=== PATIENT | male | born 1945 | race Caucasian/White ===

== ENCOUNTER → 2016-05-08 08:02 | Outpatient (CLI) | payer MEDICARE, OTHER ==
[2015-07-06 14:02] VITALS: BMI 23.7
[~2016-05-08 08:02] MED LIST: EXFORGE 5-160 M1 TAB PO; HYDROCODONE-APA1 TAB PO; IMITREX100 MG PO; INFANT GAS40 MG/0.6 PO; KLONOPIN1 MG PO; LEVAQUIN500 MG PO; MIRALAX17 GM PO; MIRAPEX0.5 MG PO; NEURONTIN600 MG PO; PRILOSEC20 MG PO; RESTORIL15 MG PO; SUDOGEST30 MG PO; ZANAFLEX6 MG PO; ZANTAC150 MG PO; ZOFRAN8 MG PO; [UNRECOGNIZED DRUG - OTHER] PO
== END | disposition home or self-care (01) ==
LOC: D.MRI 08:00 → D.ECHO 09:30
DX: I63.139 Cerebral infarction due to embolism of unspecified carotid artery (principal); E78.5 Hyperlipidemia, unspecified; I10 Essential (primary) hypertension

== ENCOUNTER → 2016-05-14 09:48 | Outpatient (CLI) | payer MEDICARE, OTHER ==
[2015-07-06 14:02] VITALS: BMI 23.7
--- NOTE | 2016-05-17 08:24 | EEG ---
PATIENT:TODD HERNANDES DATE OF SERVICE: 05/14/16 MEDICAL RECORD: [id number] DATE OF : 47 LOCATION: [facility] ADMISSION DATE: 05/14/16 REFERRING PHYSICIAN: INTERPRETING PHYSICIAN: TOBI COLIN MD DATE OF SERVICE: 05/14/2016 REFERRED BY: Myself as an outpatient. ELECTROENCEPHALOGRAM NUMBER: [id number]. DATE OF EXAMINATION: 05/14/2016 at 10:20 a.m. TECHNICAL DATA: This electroencephalographic recording consists of approximately 20 minutes of data collection utilizing the international 10/20 system of electrode placement and both referential and non-referential montages. Sixteen channels of electrocerebral recording are accompanied by a 17th channel dedicated to the electrocardiographic rhythm and to 2 channels of electromyographic recording. The recording is performed entirely in the waking state utilizing activation by photic stimulation. ELECTROENCEPHALOGRAPHIC DATA: The entirety of the recorded electrocerebral activity is performed in the waking state. Electromyographic artifact is prominent and rapid eye movements are seen. The posterior dominant background consists of a well-developed, symmetric, rhythmic, waxing and waning alpha activity of 7-8 Hz, which is suppressed by eye opening. No abnormal or focal slowing is identified. No epileptiform discharges are seen. Photic stimulation induces no abnormal change in the recorded electrocerebral activity. INTERPRETATION: 1. Normal (awake). This is a normal electroencephalographic recording. TRANSINT:[id number] Voice Confirmation ID: [id number] DOCUMENT ID: [id number] TOBI COLIN MD at 0824 CC: [id number] DICTATION DATE: 05/16/16 0738 OYSTER FISHERMAN: 05/16/16 0825 DEP CLI 05/14/16 [facility] [address] [place] [address]
--- NOTE | 2016-05-29 13:15 | EC ---
PATIENT:TODD HERNANDES DATE OF SERVICE: 05/14/16 SEX: M MEDICAL RECORD: [id number] DATE OF : 47 LOCATION:[facility] AGE OF PATIENT: 71 ADMISSION DATE: 05/14/16 REFERRING PHYSICIAN: INTERPRETING PHYSICIAN: JAG WILCOX M.D. ECHOCARDIOGRAM REPORT ECHO CHARGES 4 ECHO COMPLETE CLINICAL DIAGNOSIS: CERBREAL INFARCT/HYPOLIPDEMIA ASSESS FOR CLOTS HX OF HTN ECHOCARDIOGRAPHIC MEASUREMENTS (adult normal given) AC root (d.<3.7cm) 4.1 LV Septum d (<1.2 cm> 1.7 Valve Excursion 2.0 LV Septum (systole) 1.8 Left Atria (s.<4.0cm> 3.7 LVPW d(<1.2cm) 1.6 RV (d.<2.3cm) 4.0 LVPW (sytole) 1.7 LV diastole(<5.6CM) 4.5 MV E-F(>70mm/sec) LV systole 3.0 LVOT Diameter 2.2 MV exc.(>10mm) 1.7 Est.ejection fraction (50-75%) Pericardial Effusion N DOPPLER: LVIT A 117 E 105 LA RVSP 55 LVOT 147 AOP1/2T Asc. Ao 158 RVOT 77 RA PA 135 AV Gradient Peak 10.0 AV Mean 5.0 AV Area 3.7 MV Gradient Peak 6.5 MV Mean 2.83 MV Area COMMENTS: Wet Wash Assembler: Brian ROBERTS Size Mixer:2 Dr. Wilcox TAPE# PACS DATE OF SERVICE: 05/14/2016 Echocardiogram Report REFERRING PHYSICIAN: Dr. Kong. INDICATION: CVA. DESCRIPTION: Left ventricle demonstrates left ventricular hypertrophy. No wall motions are seen. Estimated ejection fraction is 55%. There is no evidence of ECHOCARDIOGRAM REPORT [id number] TODD HERNANDES any mass or thrombus in left ventricle apex. Mitral valve is structurally normal. There is mild regurgitation noted. Left atrium is normal in size. The aortic valve is trileaflet. There is no stenosis or regurgitation seen. Right ventricle appears mildly dilated. Tricuspid valve structures are normal. There is mild regurgitation seen. Right ventricular systolic pressure is elevated at 55 mmHg. There is no pericardial effusion noted. IMPRESSION: 1. Left ventricular hypertrophy with preserved ejection fraction of 55%. 2. Mild mitral regurgitation. 3. Mild tricuspid regurgitation with elevated pulmonary pressures. 4. No evidence of any mass or thrombus in the left ventricle apex. 5. No evidence of atrial septal defect, ventricular septal defect or patent foramen ovale. TRANSINT:[id number] Voice Confirmation ID: [id number] DOCUMENT ID: [id number] JAG WILCOX M.D. at 1315 CC: [id number] DICTATION DATE: 05/14/16 142 [place] RESOURCE MANAGER: 05/14/16 1435 [facility] CLI 05/14/16 [address] [id number] [place] [address]
== END | disposition home or self-care (01) ==
LOC: D.CN 09:48
DX: I63.139 Cerebral infarction due to embolism of unspecified carotid artery (principal); E78.4 Other hyperlipidemia; I10 Essential (primary) hypertension

== ENCOUNTER 2017-05-15 06:15 | Inpatient (IN) | payer MEDICARE, OTHER ==
[~2017-05-15] VITALS: Ht 180.3 cm; Wt 95.1 kg
--- NOTE | ~2017-05-15 | EC ---
PATIENT:TODD HERNANDES DATE OF SERVICE: 05/15/17 SEX: M MEDICAL RECORD: [id number] DATE OF : 47 LOCATION:D.MS [facility] AGE OF PATIENT: 72 ADMISSION DATE: 05/15/17 REFERRING PHYSICIAN: INTERPRETING PHYSICIAN: LEVI HOYT MD ECHOCARDIOGRAM REPORT ECHO CHARGES 4 ECHO COMPLETE CLINICAL DIAGNOSIS: TIA VS CVA HX OF HYPOTENSION/ACUTE RENAL FAILURE ECHOCARDIOGRAPHIC MEASUREMENTS (adult normal given) AC root (d.<3.7cm) 3.8 cm LV Septum d (<1.2 cm> 1.8 cm Valve Excursion 1.7 cm LV Septum (systole) 2.1 cm Left Atria (s.<4.0cm> 3.5 cm LVPW d(<1.2cm) 1.5 cm RV (d.<2.3cm) 3.3 cm LVPW (sytole) 1.7 cm LV diastole(<5.6CM) 4.7 cm MV E-F(>70mm/sec) cm LV systole 3.3 cm LVOT Diameter 1.7 cm MV exc.(>10mm) 1.7 cm Est.ejection fraction (50-75%) % Pericardial Effusion N DOPPLER: LVIT cm/sec A 105 cm/sec E 99.0 cm/sec LA cm/sec RVSP 45 mmHg LVOT 128 cm/sec AOP1/2T m/s Asc. Ao 185 cm/sec RVOT 91 cm/sec RA cm/sec PA 134 cm/sec AV Gradient Peak 13.74mmHg AV Mean 5.98 mmHg AV Area 2.1 cm MV Gradient Peak 7.17 mmHg MV Mean 2.23 mmHg MV Area cm COMMENTS: Cellulose Insulation Helper: Brian ROBERTS Assembler Type Bar And Segment: 2 Dr. Wilcox TAPE# PACS DATE OF SERVICE: 05/15/2017 DATE OF SERVICE: 05/15/2017 FINDINGS: 1. Left ventricle chamber size is within normal limits. Left ventricular systolic function is normal. Overall ejection fraction estimated at 60%. 2. Left atrium, right atrium, and right ventricular chamber sizes are within normal limits. ECHOCARDIOGRAM REPORT [id number] TODD HERNANDES 3. Valvular structures have normal structure and motion. 4. Doppler interrogation reveals only mild tricuspid regurgitation. No other valvular insufficiency or stenosis. 5. No evidence of pericardial effusion or left ventricular thrombus. 6. No cardiac source of neurologic emboli. TRANSINT:[id number] Voice Confirmation ID: [id number] DOCUMENT ID: [id number] LEVI HOYT MD at 1018 CC: [id number] DICTATION DATE: 05/15/171919 LOCAL AREA NETWORK ADMINISTRATOR: 05/15/17 2235 ADM IN [facility] [address] [place] [id number]
[2017-05-15 06:38] LABS: BASOPHILS 0.4 % (0-2); EOSINOPHILS 2.9 % (0-7); HEMATOCRIT 32.4 % (42.0-54.0); HEMOGLOBIN 10.1 g/dL (13.5-17.5); LYMPHOCYTES 32.2 % (15-50); MCH 31.1 pg (26.0-34.0); MCHC 31.2 g/dL (31.0-37.0); MCV 99.7 fL (80.0-100.0); MEAN PLATELET VOLUME 8.9 fL (7.4-10.4); MONOCYTES 13.9 % (2-11); NEUTROPHILS 50.6 % (40-80); PLATELET COUNT 150 10x3/uL (130-400); RBC 3.25 10x6/uL (4.20-6.10); RDW 13.1 % (11.5-14.5); WBC 5.3 10x3/uL (4.8-10.8)
[2017-05-15 07:04] LABS: ALBUMIN 3.1 g/dL (3.4-5.0); ANION GAP 11.9 mmol/L (8-16); BILIRUBIN - TOTAL 0.61 mg/dL (0.2-1.3); CALCIUM 8.3 mg/dL (8.5-10.1); CARBON DIOXIDE 27.6 mmol/L (21.0-32.0); CREATININE - SERUM 1.4 mg/dL (0.6-1.3); POTASSIUM - SERUM 4.5 mmol/L (3.5-5.1); PROTEIN - SERUM 6.4 g/dL (6.4-8.2)
[2017-05-15 07:40] LABS: CREATINE KINASE 3007 UL (21-232); MAGNESIUM - SERUM 2.3 mg/dL (1.8-2.4); PRO BNP 771 pg/mL (0-125); TROPONIN-I 0.021 ng/mL (0.000-0.060)
[2017-05-15 07:41] LABS: CKMB 42.5 U/L (0.0-3.6)
[2017-05-15] MEDS ORDERED: DIOVAN160 MG PO (10:31)
[2017-05-15] MEDS ORDERED: PRAVACHOL40 MG PO (10:31)
[2017-05-15] MEDS ORDERED: AVODART0.5 MG PO (10:32)
[2017-05-15] MEDS ORDERED: NORVASC2.5 MG PO (10:33)
[2017-05-15] MEDS ORDERED: BAYER ASPIRIN325 MG PO (10:33)
[2017-05-15] MEDS ORDERED: MORPHINE SULFAT15 M4 PO (10:34)
[2017-05-15] MEDS ORDERED: HYDROCODONE-APA1 TAB PO (10:37)
[2017-05-15 14:09] LABS: CKMB 25.5 U/L (0.0-3.6); CREATINE KINASE 2111 UL (21-232); TROPONIN-I 0.018 ng/mL (0.000-0.060)
[2017-05-15 14:16] VITALS: BP 142/86; Ht 180.3 cm; Wt 95.1 kg
[2017-05-15 16:23] VITALS: BP 131/76
[2017-05-15 18:05] LABS: CKMB 17.2 U/L (0.0-3.6)
[2017-05-15 18:19] LABS: CREATINE KINASE 2005 UL (21-232); TROPONIN-I < 0.017 ng/mL (0.000-0.060)
[2017-05-15 20:00] VITALS: BP 150/84
[2017-05-15 23:58] VITALS: BP 162/90
[2017-05-16 00:22] LABS: CKMB 10.4 U/L (0.0-3.6); TROPONIN-I 0.023 ng/mL (0.000-0.060)
[2017-05-16 00:24] LABS: CREATINE KINASE 1707 UL (21-232)
[2017-05-16 04:00] VITALS: BP 177/89
[2017-05-16 05:38] LABS: BASOPHILS 0.4 % (0-2); EOSINOPHILS 2.6 % (0-7); HEMATOCRIT 33.6 % (42.0-54.0); HEMOGLOBIN 10.9 g/dL (13.5-17.5); LYMPHOCYTES 29.4 % (15-50); MCH 31.3 pg (26.0-34.0); MCHC 32.4 g/dL (31.0-37.0); MEAN PLATELET VOLUME 9.5 fL (7.4-10.4); MONOCYTES 12.1 % (2-11); NEUTROPHILS 55.5 % (40-80); RBC 3.48 10x6/uL (4.20-6.10); WBC 4.6 10x3/uL (4.8-10.8)
[2017-05-16 05:41] LABS: MCV 96.6 fL (80.0-100.0); PLATELET COUNT 186 10x3/uL (130-400)
[2017-05-16 05:50] LABS: ALBUMIN 3.2 g/dL (3.4-5.0); ALKALINE PHOSPHATASE 61 U/L (46-116); ALT (SGPT) 22 U/L (10-68); BILIRUBIN - TOTAL 0.96 mg/dL (0.2-1.3); CALC OSMOLALITY 279 mosm/kg (275-300); CALCIUM 8.9 mg/dL (8.5-10.1); CARBON DIOXIDE 26.5 mmol/L (21.0-32.0); CHLORIDE - SERUM 105 mmol/L (98-107); CHOL - HDL RATIO 2.3 ratio (2.3-4.9); CHOLESTEROL, TOTAL 157 mg/dL (0-200); GLUCOSE 99 mg/dL (74-106); HDL CHOLESTEROL 67 mg/dL (32-96); LDL CHOLESTEROL 74 mg/dL (0-100); LDL-HDL RATIO 1.1 ratio (1.5-3.5); PROTEIN - SERUM 6.7 g/dL (6.4-8.2); SODIUM 140 mmol/L (136-145); TRIGLYCERIDE 80 mg/dL (30-200); UREA NITROGEN 16 mg/dL (7-18)
[2017-05-16 05:51] LABS: POTASSIUM - SERUM 3.8 mmol/L (3.5-5.1); eGFR NON AFRICAN AMERICAN 78 mL/min (90-120)
[2017-05-16 07:15] LABS: ERYTHROCYTE SEDIMENTATION RATE 30 mm/hr (0-20)
[2017-05-16 08:13] VITALS: BP 154/99
[2017-05-16 12:13] VITALS: BP 143/85
[2017-05-16 17:20] VITALS: BP 154/94
[2017-05-16 20:10] VITALS: BP 149/78
[2017-05-16 23:43] VITALS: BP 157/95
[2017-05-17 02:26] LABS: APPEARANCE CLEAR (CLEAR); BILIRUBIN NEGATIVE (NEGATIVE); COLOR YELLOW (YELLOW); GLUCOSE NEGATIVE (NEGATIVE); KETONE NEGATIVE (NEGATIVE); NITRITE NEGATIVE (NEGATIVE); PROTEIN NEGATIVE (NEGATIVE); SPECIFIC GRAVITY 1.005 (1.005-1.020); UROBILINOGEN NORMAL (NORMAL)
[2017-05-17 04:17] VITALS: BP 169/102
[2017-05-17 06:11] LABS: BASOPHILS 0.2 % (0-2); EOSINOPHILS 3.2 % (0-7); HEMATOCRIT 32.4 % (42.0-54.0); HEMOGLOBIN 10.7 g/dL (13.5-17.5); LYMPHOCYTES 32.8 % (15-50); MCH 31.3 pg (26.0-34.0); MCV 94.7 fL (80.0-100.0); MEAN PLATELET VOLUME 9.4 fL (7.4-10.4); MONOCYTES 13.1 % (2-11); NEUTROPHILS 50.7 % (40-80); PLATELET COUNT 182 10x3/uL (130-400); RBC 3.42 10x6/uL (4.20-6.10); RDW 13.1 % (11.5-14.5); WBC 4.1 10x3/uL (4.8-10.8)
[2017-05-17 06:31] LABS: ALBUMIN 3.1 g/dL (3.4-5.0); ALKALINE PHOSPHATASE 59 U/L (46-116); ALT (SGPT) 21 U/L (10-68); BILIRUBIN - TOTAL 0.94 mg/dL (0.2-1.3); CALC OSMOLALITY 283 mosm/kg (275-300); CALCIUM 8.7 mg/dL (8.5-10.1); CARBON DIOXIDE 27.2 mmol/L (21.0-32.0); CHLORIDE - SERUM 106 mmol/L (98-107); GLUCOSE 102 mg/dL (74-106); POTASSIUM - SERUM 3.6 mmol/L (3.5-5.1); PROTEIN - SERUM 6.5 g/dL (6.4-8.2); SODIUM 143 mmol/L (136-145); UREA NITROGEN 11 mg/dL (7-18); eGFR NON AFRICAN AMERICAN 78 mL/min (90-120)
[2017-05-17 09:41] VITALS: BP 141/94
[2017-05-17 12:14] VITALS: BP 142/96
[2017-05-17] MEDS ORDERED: MUCINEX600 MG PO (12:57)
[2017-05-17] MEDS ORDERED: TESSALON PERLE100 MG PO (12:57)
[2017-05-17] MEDS ORDERED: NICODERM C1 PATCH .1 TRANSDERM (12:58)
[2017-05-19 10:12] LABS: ANA REFLEX - DIRECT Negative (Negative)
== END 2017-05-17 17:00 | disposition home or self-care (01) | DRG 64 ==
LOC: D.ER 06:15 → D.MS 09:26
PROVIDERS: Emergency Medicine; Family Medicine
DX: I63.8 Other cerebral infarction (principal); G93.41 Metabolic encephalopathy; N17.9 Acute kidney failure, unspecified; F17.203 Nicotine dependence unspecified, with withdrawal; R44.1 Visual hallucinations; I11.0 Hypertensive heart disease with heart failure; I50.9 Heart failure, unspecified; J44.9 Chronic obstructive pulmonary disease, unspecified; F41.9 Anxiety disorder, unspecified; G62.9 Polyneuropathy, unspecified; I95.9 Hypotension, unspecified

== ENCOUNTER 2017-06-07 14:38 | Inpatient (IN) | payer MEDICARE, OTHER ==
[~2017-06-07] VITALS: Ht 180.3 cm; Wt 72.6 kg
[~2017-06-07 14:38] MED LIST changes: +AVODART0.5 MG PO; +BAYER ASPIRIN325 MG PO; +DIOVAN160 MG PO; +MORPHINE SULFAT15 M4 PO; +MUCINEX600 MG PO; +NICODERM C1 PATCH .1 TRANSDERM; +NORVASC2.5 MG PO; +PRAVACHOL40 MG PO; +TESSALON PERLE100 MG PO
[2017-06-07 16:16] LABS: BASOPHILS 0.3 % (0-2); EOSINOPHILS 4.6 % (0-7); HEMATOCRIT 35.5 % (42.0-54.0); HEMOGLOBIN 11.2 g/dL (13.5-17.5); IMMATURE GRANULOCYTES 0.1 % (0-5); LYMPHOCYTES 17.7 % (15-50); MCH 31.4 pg (26.0-34.0); MCHC 31.5 g/dL (31.0-37.0); MCV 99.4 fL (80.0-100.0); MEAN PLATELET VOLUME 9.6 fL (7.4-10.4); MONOCYTES 10.4 % (2-11); NEUTROPHILS 66.9 % (40-80); RBC 3.57 10x6/uL (4.20-6.10); RDW 13.3 % (11.5-14.5); WBC 7.6 10x3/uL (4.8-10.8)
[2017-06-07 16:26] LABS: APPEARANCE CLEAR (CLEAR); COLOR YELLOW (YELLOW)
[2017-06-07 16:27] LABS: BILIRUBIN NEGATIVE (NEGATIVE); GLUCOSE NEGATIVE (NEGATIVE); KETONE NEGATIVE (NEGATIVE); NITRITE NEGATIVE (NEGATIVE); PROTEIN NEGATIVE (NEGATIVE); SPECIFIC GRAVITY 1.015 (1.005-1.020); UROBILINOGEN NORMAL (NORMAL)
[2017-06-07 16:27] LABS: PLATELET COUNT 141 10x3/uL (130-400)
[2017-06-07 16:39] LABS: ALBUMIN 3.5 g/dL (3.4-5.0); ANION GAP 12.2 mmol/L (8-16); BILIRUBIN - TOTAL 0.61 mg/dL (0.2-1.3); CALCIUM 8.7 mg/dL (8.5-10.1); CARBON DIOXIDE 28.7 mmol/L (21.0-32.0); CREATININE - SERUM 1.3 mg/dL (0.6-1.3); POTASSIUM - SERUM 4.9 mmol/L (3.5-5.1); PROTEIN - SERUM 6.9 g/dL (6.4-8.2)
[2017-06-07 23:00] VITALS: BP 116/74
[2017-06-07 23:15] VITALS: BP 112/71; BP 128/70; BMI 22.3
[2017-06-07 23:30] VITALS: BP 120/69
[2017-06-07 23:45] VITALS: BP 122/78
[2017-06-08] VITALS (12 sets, daily range): BP systolic 101–143; BP diastolic 67–98
[2017-06-08] MEDS ORDERED: ZANAFLEX6 MG PO (08:43)
[2017-06-08] MEDS ORDERED: PRAVACHOL40 MG PO (08:44)
[2017-06-09 01:42] VITALS: BP 127/75
[2017-06-09 05:37] LABS: BASOPHILS 0.2 % (0-2); EOSINOPHILS 9.2 % (0-7); HEMOGLOBIN 10.1 g/dL (13.5-17.5); IMMATURE GRANULOCYTES 0.2 % (0-5); LYMPHOCYTES 36.7 % (15-50); MCH 31.8 pg (26.0-34.0); MCHC 32.6 g/dL (31.0-37.0); MCV 97.5 fL (80.0-100.0); MEAN PLATELET VOLUME 9.6 fL (7.4-10.4); NEUTROPHILS 40.7 % (40-80); PLATELET COUNT 131 10x3/uL (130-400); RBC 3.18 10x6/uL (4.20-6.10); RDW 12.8 % (11.5-14.5)
[2017-06-09 05:38] LABS: WBC 4.1 10x3/uL (4.8-10.8)
[2017-06-09 05:55] VITALS: BP 103/64
[2017-06-09 05:59] LABS: CALCIUM 8.4 mg/dL (8.5-10.1); CARBON DIOXIDE 30.2 mmol/L (21.0-32.0); CHLORIDE - SERUM 105 mmol/L (98-107); GLUCOSE 101 mg/dL (74-106); SODIUM 140 mmol/L (136-145)
[2017-06-09 06:00] LABS: CALC OSMOLALITY 276 mosm/kg (275-300); CREATININE - SERUM 0.9 mg/dL (0.6-1.3); POTASSIUM - SERUM 3.9 mmol/L (3.5-5.1); UREA NITROGEN 6 mg/dL (7-18); eGFR NON AFRICAN AMERICAN 88 mL/min (90-120)
[2017-06-09 09:26] VITALS: BP 114/74
[2017-06-09 12:43] VITALS: BP 114/70
[2017-06-09 15:16] VITALS: Ht 180.3 cm; Wt 72.6 kg
[2017-06-09 17:33] VITALS: BP 124/75
[2017-06-09 21:52] VITALS: BP 122/71
[2017-06-10 00:48] VITALS: BP 124/74
[2017-06-10 05:33] VITALS: BP 124/77
[2017-06-10 06:34] LABS: ANION GAP 7.4 mmol/L (8-16); CALCIUM 8.5 mg/dL (8.5-10.1); CARBON DIOXIDE 33.3 mmol/L (21.0-32.0); CREATININE - SERUM 1.1 mg/dL (0.6-1.3); POTASSIUM - SERUM 3.7 mmol/L (3.5-5.1)
[2017-06-10 06:43] LABS: HEMOGLOBIN 9.9 g/dL (13.5-17.5); LYMPHOCYTES 32.5 % (15-50); MCH 31.3 pg (26.0-34.0); MEAN PLATELET VOLUME 9.3 fL (7.4-10.4); PLATELET COUNT 120 10x3/uL (130-400); RBC 3.16 10x6/uL (4.20-6.10); RDW 12.3 % (11.5-14.5); WBC 4.3 10x3/uL (4.8-10.8)
[2017-06-10 06:44] LABS: MCV 94.9 fL (80.0-100.0)
[2017-06-10 08:30] VITALS: BP 126/76
[2017-06-10 12:08] VITALS: BP 119/69
[2017-06-10] MEDS ORDERED: NICODERM C1 PATCH .1 TRANSDERM (12:57)
[2017-06-10] MEDS ORDERED: TEGRETOL200 MG PO (12:58)
== END 2017-06-10 15:03 | disposition home or self-care (01) | DRG 64 ==
LOC: D.ER 14:38 → D.EDHOLD 19:30 → D.MS 19:30 → D.ICU 19:30 → D.MS 06-08 18:09
PROVIDERS: Emergency Medicine; Internal Medicine Nephrology
DX: I63.9 Cerebral infarction, unspecified (principal); G93.41 Metabolic encephalopathy; J96.21 Acute and chronic respiratory failure with hypoxia; N17.9 Acute kidney failure, unspecified; F17.203 Nicotine dependence unspecified, with withdrawal; R56.9 Unspecified convulsions; D64.9 Anemia, unspecified; J43.9 Emphysema, unspecified; I10 Essential (primary) hypertension; R55 Syncope and collapse

== ENCOUNTER → 2018-04-23 14:39 | Outpatient (CLI) | payer MEDICARE, BC ==
[2017-06-09 15:16] VITALS: BMI 22.3
[~2018-04-23 14:39] MED LIST changes: +TEGRETOL200 MG PO
== END | disposition home or self-care (01) ==
LOC: D.MRI 14:39
DX: M54.2 Cervicalgia (principal)

== ENCOUNTER → 2018-05-07 12:19 | Outpatient (CLI) | payer MEDICARE, BC ==
[2017-06-09 15:16] VITALS: BMI 22.3
[~2018-05-07 12:19] MED LIST changes: +BENICAR40 MG; +FLOMAX0.4 MG; +HYDROCODON-ACE1 EA10; +PRAVACHOL20 MG; +ZANAFLEX6 MG
== END | disposition home or self-care (01) ==
LOC: D.CT 12:19
DX: M54.2 Cervicalgia (principal)

== ENCOUNTER 2018-05-25 17:12 | Inpatient (IN) | payer MEDICARE, BC ==
[~2018-05-25] VITALS: Ht 180.3 cm; Wt 72.6 kg
[~2018-05-25 17:12] MED LIST changes: -BENICAR40 MG; -FLOMAX0.4 MG; -HYDROCODON-ACE1 EA10; -PRAVACHOL20 MG; -ZANAFLEX6 MG
[2018-05-25 17:21] VITALS: BP 81/46
[2018-05-25 17:30] VITALS: BP 84/50
[2018-05-25 17:46] LABS: HEMATOCRIT 31.5 % (42.0-54.0); HEMOGLOBIN 10.3 g/dL (13.5-17.5); IMMATURE GRANULOCYTES 0.2 % (0-5); LYMPHOCYTES 34.7 % (15-50); MCH 31.4 pg (26.0-34.0); MCHC 32.7 g/dL (31.0-37.0); MEAN PLATELET VOLUME 8.8 fL (7.4-10.4); MONOCYTES 10.8 % (2-11); NEUTROPHILS 50.3 % (40-80); RBC 3.28 10x6/uL (4.20-6.10); RDW 13.4 % (11.5-14.5)
[2018-05-25] MEDS ORDERED: BENICAR40 MG (17:56)
[2018-05-25] MEDS ORDERED: FLOMAX0.4 MG (17:56)
[2018-05-25] MEDS ORDERED: PRAVACHOL20 MG (17:57)
[2018-05-25] MEDS ORDERED: HYDROCODON-ACE1 EA10 (17:57)
[2018-05-25] MEDS ORDERED: ZANAFLEX6 MG (17:57)
[2018-05-25] MEDS ORDERED: KLONOPIN1 MG PO (17:57)
[2018-05-25 18:00] VITALS: BP 101/66
[2018-05-25 18:01] LABS: ALBUMIN 2.9 g/dL (3.4-5.0); ALKALINE PHOSPHATASE 67 U/L (46-116); ALT (SGPT) 9 U/L (10-68); BILIRUBIN - TOTAL 0.38 mg/dL (0.2-1.3); CALCIUM 7.9 mg/dL (8.5-10.1); CARBON DIOXIDE 24.4 mmol/L (21.0-32.0); CHLORIDE - SERUM 99 mmol/L (98-107); CREATININE - SERUM 1.8 mg/dL (0.6-1.3); POTASSIUM - SERUM 4.8 mmol/L (3.5-5.1); PROTEIN - SERUM 5.8 g/dL (6.4-8.2); SODIUM 133 mmol/L (136-145); UREA NITROGEN 18 mg/dL (7-18); eGFR NON AFRICAN AMERICAN 40 mL/min (90-120)
[2018-05-25 18:12] LABS: CKMB 0.7 U/L (0.0-3.6); CREATINE KINASE 52 UL (21-232); PRO BNP 79 pg/mL (0-125)
[2018-05-25 18:16] LABS: PLATELET COUNT 174 10x3/uL (130-400)
[2018-05-25 18:30] VITALS: BP 105/67
[2018-05-25 18:37] LABS: CALC OSMOLALITY 270 mosm/kg (275-300); GLUCOSE 148 mg/dL (74-106); TROPONIN-I < 0.017 ng/mL (0.000-0.060)
[2018-05-25 19:00] VITALS: BP 107/67
--- NOTE | 2018-05-25 19:13 | NUR ---
HAND-OFF REPORT GIVEN TO EMY JIMENEZ.
[2018-05-25 19:30] VITALS: BP 117/85
--- NOTE | 2018-05-26 02:39 | NUR ---
2044) REC'D. TO RM.2237.EYES CLOSED RESP. DEEP AND EVEN.fLORIDA NECK BRACE ON.SEDATED OPENS EYES WHEN NAME CALLED THEN GOES BACK TO SLEEP. FAMILY MEMBER AT BEDSIDE,WILL CONTINUE TO MONITOR FOR ANY CHGES, AND FOLLOW CURRENT PLAN OF CARE.
[2018-05-26 04:00] VITALS: BP 146/89
[2018-05-26 04:03] VITALS: BMI 22.3
[2018-05-26 05:59] LABS: BASOPHILS 0.3 % (0-2); EOSINOPHILS 1.9 % (0-7); HEMOGLOBIN 10.9 g/dL (13.5-17.5); IMMATURE GRANULOCYTES 0.2 % (0-5); LYMPHOCYTES 22.5 % (15-50); MCH 31.1 pg (26.0-34.0); MONOCYTES 10.5 % (2-11); NEUTROPHILS 64.6 % (40-80); RBC 3.51 10x6/uL (4.20-6.10); RDW 13.3 % (11.5-14.5)
[2018-05-26 06:12] LABS: INR 0.96 (0.85-1.17); PROTIME 12.3 SECONDS (11.6-15.0)
[2018-05-26 06:14] LABS: ANION GAP 12.2 mmol/L (8-16); CALCIUM 8.5 mg/dL (8.5-10.1); CARBON DIOXIDE 25.5 mmol/L (21.0-32.0); POTASSIUM - SERUM 4.7 mmol/L (3.5-5.1)
[2018-05-26 06:16] LABS: CREATININE - SERUM 1.3 mg/dL (0.6-1.3)
[2018-05-26 06:18] LABS: PLATELET COUNT 218 10x3/uL (130-400); WBC 6.4 10x3/uL (4.8-10.8)
--- NOTE | 2018-05-26 07:25 | NUR ---
PT RESTING IN BED, EYES CLOSED. RESPIRATIONS EVEN AND UNLABORED. AROUSES TO VOICE. NO C/O PAIN. NO S/S OF ACUTE DISTRESS NOTED. AT BEDSIDE. PT ADMITTED WITH LUNG MASS. FALL PRECAUTIONS IN PLACE. SCDS PRESENT AND ON. 2L O2, NC. IV TO LEFT AC, SITE PATENT WITHOUT REDNESS OR SWELLING. NS INFUSING @ 125ML/HR. PT DENIES ANYTHING FURTHER AT THIS TIME. CALL LIGHT IN REACH. WILL CONTINUE TO MONITOR.
[2018-05-26 08:30] VITALS: BP 145/88
[2018-05-26 12:30] VITALS: BP 175/108
--- NOTE | 2018-05-26 12:53 | NUR ---
PT BP ELEVATED TO 175/108, RECHECKED BP 167/109. CALLED BETHANY OLIVA APN ORDERED NORVASC 2.5MG ONE TIME, ASPIRIN 325MG ONE TIME AND TO RECHECK BP IN ONE HOUR. IF BP NOT DOWN, THEN GIVE APPRESSOLINE 10MG IV PUSH. PT RESTING IN BED, NO C/O PAIN. NO S/S OF ACUTE DISTRESS NOTED. PT DENIES ANYTHING FURTHER AT THIS TIME. AT BEDSIDE. WILL CONTINUE TO MONITOR.
--- NOTE | 2018-05-26 12:56 | NUR ---
SITTING UP IN BED FOR LUNCH. C COLLAR IN PLACE. AT BEDSIDE. DENIES NEEDS.
--- NOTE | 2018-05-26 13:13 | NUR ---
OT NOTE: PT EXTREMELY LETHARGIC; AROUSED TO NAME BUT UNABLE TO STAY AWAKE; WILL RE ATTEMPT TOMORROW. LIGIA HARDING, OTR/L
--- NOTE | 2018-05-26 14:03 | NUR ---
IR- PT WILL NEED TO BE OFF ASPIRIN FOR AT LEAST THREE DAYS PRIOR TO RLL BIOPSY. CAN BE DONE ON OUTPATIENT BASIS.
[2018-05-26 14:43] VITALS: Ht 180.3 cm; Wt 72.6 kg
--- NOTE | 2018-05-26 18:03 | NUR ---
PT RESTING IN BED, EYES OPEN. GUARD AT BEDSIDE. NO C/O PAIN. EPIDUAL INFUSING. NO S/S OF ACUTE DISTRESS. PT DENIES ANYTHING FURTHER AT THIS TIME. CALL LIGHT IN REACH. WILL CONTINUE TO MONITOR.
[2018-05-26 18:05] VITALS: BP 119/77
--- NOTE | 2018-05-26 18:07 | NUR ---
PT RESTING IN BED EYES OPEN. C/O PAIN 01/28, GAVE 2MG MORPHINE FOR PAIN. AT BEDSIDE. NO S/S OF ACUTE DISTRESS NOTED. PT DENIES ANYTHING FURTHER AT THIS TIME. CALL LIGHT IN REACH. WILL CONTINUE TO MONITOR.
[2018-05-26 20:00] VITALS: BP 135/66
--- NOTE | 2018-05-27 01:10 | NUR ---
pt in bed resprations are even and unlabored call light in reach. no s/s of distress.
[2018-05-27 05:20] VITALS: BP 133/74
[2018-05-27 05:33] LABS: BASOPHILS 0.3 % (0-2); EOSINOPHILS 1.8 % (0-7); HEMATOCRIT 32.5 % (42.0-54.0); HEMOGLOBIN 10.8 g/dL (13.5-17.5); IMMATURE GRANULOCYTES 0.2 % (0-5); LYMPHOCYTES 20.5 % (15-50); MCH 31.3 pg (26.0-34.0); MCHC 33.2 g/dL (31.0-37.0); MCV 94.2 fL (80.0-100.0); MEAN PLATELET VOLUME 8.8 fL (7.4-10.4); MONOCYTES 9.6 % (2-11); NEUTROPHILS 67.6 % (40-80); PLATELET COUNT 210 10x3/uL (130-400); RBC 3.45 10x6/uL (4.20-6.10); RDW 13.5 % (11.5-14.5); WBC 6.6 10x3/uL (4.8-10.8)
[2018-05-27 05:36] LABS: APTT 24.4 SECONDS (22.8-39.4); INR 0.94 (0.85-1.17); PROTIME 12.1 SECONDS (11.6-15.0)
[2018-05-27 05:37] LABS: ALBUMIN 2.9 g/dL (3.4-5.0); ANION GAP 14.1 mmol/L (8-16); BILIRUBIN - TOTAL 0.52 mg/dL (0.2-1.3); CALCIUM 8.4 mg/dL (8.5-10.1); CARBON DIOXIDE 25.6 mmol/L (21.0-32.0); CREATININE - SERUM 1.1 mg/dL (0.6-1.3); POTASSIUM - SERUM 4.7 mmol/L (3.5-5.1); PROTEIN - SERUM 6.4 g/dL (6.4-8.2)
--- NOTE | 2018-05-27 09:00 | NUR ---
PT RESTING IN BED. NO SIGNS OF DISTRESS. IV TO RIGHT FORARM PATENT NO REDNESS OR TENDERNESS. ON TELEMETRY NORMAL SINUS. HAS BRACE ON NECK. DENIES ANY NEED AT THIS TIME. CALL LIGHT IN REACH. BED LOW POSITION. FAMILY AT BEDSIDE.
[2018-05-27 09:07] VITALS: BP 124/50; BP 158/89
[2018-05-27] MEDS ORDERED: MUCINEX DM ER1 EAC1 PO (12:12)
[2018-05-27] MEDS ORDERED: TESSALON PERLE100 MG PO (12:12)
[2018-05-27] MEDS ORDERED: Nicoderm [PBKC] TRANSDERM (12:12)
--- NOTE | 2018-05-27 13:10 | MORECARE ---
CASE MANAGEMENT DISCHARGE SUMMARY PATIENT: TODD HERNANDES [place] UNIT: [id number] ADM DATE: 05/25/18 AGE: 73 : 46 SEX: M ROOM/BED: D.2237 AUTHOR: PARISH SHELLEY PHYSICIAN: REFERRING PHYSICIAN: JENN MON MD DATE OF SERVICE: 05/27/18 Discharge Plan Patient Name: TODD HERNANDES [facility] [facility] 1945 Planned Disposition: Anticipated Discharge Date: Discharge Date: Expected LOS: Initial Reviewer: [email or web address] Initial Review Date: 05/25/2018 Generated: 05/27/18 2:10 pm DCPIA - Discharge Planning Initial Assessment Updated by [email or web address]: Juliana Lara on 05/27/18 1:10 pm * Is the patient Alert and Oriented? Yes * How many steps to enter\exit or inside your home? * PCP TITO * Pharmacy [facility] * Preadmission Environment Home with Family * ADLs Independent * Equipment Cane Walker * Other Equipment C-COLLAR * List name and contact numbers for known caregivers / representatives who currently or will assist patient after discharge: ANETA HERNANDES () [phone] * Verbal permission to speak to the caregivers and representatives has been obtained from the patient. N/A * Community resources currently utilized None * Additional services required to return to the preadmission environment? No * Can the patient safely return to the preadmission environment? Yes * Has this patient been hospitalized within the prior 30 days at any hospital? No Patient Name: TODD HERNANDES Page [id number] at 1310 All edits/amendments must be made on the electronic document DICTATION DATE: 05/27/18 1310 FREEZING MACHINE OPERATOR: NATALIYA 05/27/18 1310 RPT#: [id number] DC DATE: STATUS: ADM IN [facility] [address] [place] [address] END OF REPORT
--- NOTE | 2018-05-27 13:19 | MORECARE ---
CASE MANAGEMENT DISCHARGE SUMMARY PATIENT: TODD HERNANDES UNIT: [id number] ADM DATE: 05/25/18 AGE: 73 : 46 SEX: M ROOM/BED: D.2237 AUTHOR: PARISH SHELLEY PHYSICIAN: REFERRING PHYSICIAN: JENN MON MD DATE OF SERVICE: 05/27/18 Discharge Plan Patient Name: TODD HERNANDES Facility: [facility]:[place] : 1945 Planned Disposition: Anticipated Discharge Date: Discharge Date: Expected LOS: Initial Reviewer: [email or web address] Initial Review Date: 05/25/2018 Generated: 05/27/18 2:19 pm Comments DCP- Discharge Planning Updated by [email or web address]: Juliana Lara on 05/27/18 12:[address] Patient Name: TODD HERNANDES Admission Status: ER Accout number: [id number] Admission Date: 05-25-2018 : 1945 Admission Diagnosis:SHORTNESS OF BREATH Attending: JENN MON Current LOS: 2 Anticipated DC Date: Planned Disposition: Primary Insurance: MEDICARE A & B Discharge Planning Comments: CM met with patient to assess discharge planning needs. Patient lives independent with his care at home. His will be the one to drive him home. He has a cane and a walker but does not use them. He is safe to return home and stated that he rubi NOT want home health. Refusal paper signed and placed in chart. CM will continue to follow as needed Inventory Worker: Juliana Lara DCPIA - Discharge Planning Initial Assessment Updated by [email or web address]: Juliana Lara on 05/27/18 1:10 pm * Is the patient Alert and Oriented? Yes * How many steps to enter\exit or inside your home? * PCP TITO * Pharmacy [facility] * Preadmission Environment Home with Family * ADLs Independent * Equipment Cane Walker * Other Equipment C-COLLAR * List name and contact numbers for known caregivers / representatives who currently or will assist patient after discharge: ANETA HERNANDES () [phone] * Verbal permission to speak to the caregivers and representatives has been obtained from the patient. N/A * Community resources currently utilized None * Additional services required to return to the preadmission environment? No * Can the patient safely return to the preadmission environment? Yes * Has this patient been hospitalized within the prior 30 days at any hospital? No Last DP export: 05/27/18 12:10 pm Patient Name: TODD HERNANDES Page 30065 at 1319 All edits/amendments must be made on the electronic document DICTATION DATE: 05/27/181318 ABLE BODIED SEAMAN: NATALIYA 05/27/181318 RPT#: [id number] DC DATE: STATUS: ADM IN [facility] [address] [place] [address] END OF REPORT
[2018-05-27 13:49] VITALS: BP 178/70
--- NOTE | 2018-05-27 13:55 | NUR ---
DISCHARGE INSTRUCTIONS GIVEN. SEEMS TO UNDERSTAND INSTRUCTIONS. IV OUT TIP INTACT. TELEMETRY TAKEN OFF. DENIES ANY OTHER NEED AT THIS TIME. NO SIGNS IN DISTRESS. LEFT WITH HOSPITAL STAFF TO PERSONAL RIDE TO GO HOME WITH HIS .
--- NOTE | 2018-05-27 14:48 | MORECARE ---
CASE MANAGEMENT DISCHARGE SUMMARY PATIENT: TODD HERNANDES UNIT: [id number] ADM DATE: 05/25/18 AGE: 73 : 46 SEX: M ROOM/BED: D.2237 AUTHOR: PARISH SHELLEY PHYSICIAN: REFERRING PHYSICIAN: JENN MON MD DATE OF SERVICE: 05/27/18 Discharge Plan Patient Name: TODD HERNANDES Facility: [facility]:[place] : 1945 Planned Disposition: Anticipated Discharge Date: Discharge Date: 05/27/2018 Expected LOS: Initial Reviewer: [email or web address] Initial Review Date: 05/25/2018 Generated: 05/27/18 3:47 pm Comments DCP- Discharge Planning Updated by [email or web address]: Juliana Lara on 05/27/18 1:[address] RECEIVED A NEBULIZER ORDER AFTER THE PATIENT WAS DISCHARGED. CALLED THE AND LET HER KNOW. [facility] WAS NOTIFIED AND ORDER SENT. I SPOKE WITH [facility] AND THEY WILL DELIVER THE NEBULIZER TO HIS HOME TODAY. DCP- Discharge Planning Updated by [email or web address]: Juliana Lara on 05/27/18 12:[address] Patient Name: TODD HERNANDES Admission Status: ER Accout number: [id number] Admission Date: 05-25-2018 : 1945 Admission Diagnosis:SHORTNESS OF BREATH Attending: JENN MON Current LOS: 2 Anticipated DC Date: Planned Disposition: Primary Insurance: MEDICARE A & B Discharge Planning Comments: CM met with patient to assess discharge planning needs. Patient lives independent with his care at home. His will be the one to drive him home. He has a cane and a walker but does not use them. He is safe to return home and stated that he rubi NOT want home health. Refusal paper signed and placed in chart. CM will continue to follow as needed Type Soldering Machine Tender: Juliana Lara DCPIA - Discharge Planning Initial Assessment Updated by [email or web address]: Juliana Lara on 05/27/18 1:10 pm * Is the patient Alert and Oriented? Yes * How many steps to enter\exit or inside your home? * PCP TITO * Pharmacy [facility] * Preadmission Environment Home with Family * ADLs Independent * Equipment Cane Walker * Other Equipment C-COLLAR * List name and contact numbers for known caregivers / representatives who currently or will assist patient after discharge: ANETA HERNANDES () [phone] * Verbal permission to speak to the caregivers and representatives has been obtained from the patient. N/A * Community resources currently utilized None * Additional services required to return to the preadmission environment? No * Can the patient safely return to the preadmission environment? Yes * Has this patient been hospitalized within the prior 30 days at any hospital? No External Providers [facility] Next Contact Date: Service Request Date: Service Type: Resolution: Reviewer: Comments: Last DP export: 05/27/18 12:19 pm Patient Name: TODD HERNANDES Page [phone] at 1448 All edits/amendments must be made on the electronic document DICTATION DATE: 05/27/181446 ODD BUNDLE WORKER: NATALIYA 05/27/18 1447 RPT#: [id number] DC DATE:05/27/18 STATUS: DIS IN [facility] [address] [facility] [place] [address] END OF REPORT
--- NOTE | 2018-05-29 09:25 | MORECARE ---
CASE MANAGEMENT DISCHARGE SUMMARY PATIENT: TODD HERNANDES UNIT: [id number] ADM DATE: 05/25/18 AGE: 73 : 46 SEX: M ROOM/BED: D.2237 AUTHOR: PARISH SHELLEY PHYSICIAN: REFERRING PHYSICIAN: JENN MON MD DATE OF SERVICE: 05/29/18 Discharge Plan Patient Name: TODD HERNANDES Facility: [facility]:[place] : 1945 Planned Disposition: Anticipated Discharge Date: Discharge Date: 05/27/2018 Expected LOS: 0 Initial Reviewer: [email or web address] Initial Review Date: 05/25/2018 Generated: 05/29/18 10:25 am Comments DCP- Discharge Planning Updated by [email or web address]: Juliana Lara on 05/27/18 1:[address] RECEIVED A NEBULIZER ORDER AFTER THE PATIENT WAS DISCHARGED. CALLED THE AND LET HER KNOW. [facility] WAS NOTIFIED AND ORDER SENT. I SPOKE WITH [facility] AND THEY WILL DELIVER THE NEBULIZER TO HIS HOME TODAY. DCP- Discharge Planning Updated by [email or web address]: Juliana Lara on 05/27/18 12:[address] Patient Name: TODD HERNANDES Admission Status: ER Accout number: [id number] Admission Date: 05-25-2018 : 1945 Admission Diagnosis:SHORTNESS OF BREATH Attending: JENN MON Current LOS: 2 Anticipated DC Date: Planned Disposition: Primary Insurance: MEDICARE A & B Discharge Planning Comments: CM met with patient to assess discharge planning needs. Patient lives independent with his care at home. His will be the one to drive him home. He has a cane and a walker but does not use them. He is safe to return home and stated that he rubi NOT want home health. Refusal paper signed and placed in chart. CM will continue to follow as needed Manager Requirements: Juliana Lara DCPIA - Discharge Planning Initial Assessment Updated by [email or web address]: Juliana Lara on 05/27/18 1:10 pm * Is the patient Alert and Oriented? Yes * How many steps to enter\exit or inside your home? * PCP TITO * Pharmacy [facility] * Preadmission Environment Home with Family * ADLs Independent * Equipment Cane Walker * Other Equipment C-COLLAR * List name and contact numbers for known caregivers / representatives who currently or will assist patient after discharge: ANETA HERNANDES () [phone] * Verbal permission to speak to the caregivers and representatives has been obtained from the patient. N/A * Community resources currently utilized None * Additional services required to return to the preadmission environment? No * Can the patient safely return to the preadmission environment? Yes * Has this patient been hospitalized within the prior 30 days at any hospital? No Last DP export: 05/27/18 1:48 pm Patient Name: TODD HERNANDES Page 52589 at 0925 All edits/amendments must be made on the electronic document DICTATION DATE: 05/29/18924 LOGISTICS AND PLANNING MANAGER: NATALIYA 05/29/18924 RPT#: [id number] DC DATE:05/27/18 STATUS: DIS IN [facility] [address] [place] [address] END OF REPORT
== END 2018-05-27 14:03 | disposition home or self-care (01) | DRG 180 ==
LOC: D.ER 17:12 → D.MS 19:18
PROVIDERS: Family Medicine; Internal Medicine Pulmonary Disease; ADMIT Family Medicine
DX: C34.90 Malignant neoplasm of unspecified part of unspecified bronchus or lung (principal); G93.41 Metabolic encephalopathy; I13.0 Hypertensive heart and chronic kidney disease with heart failure and stage 1 through stage 4 chronic kidney disease, or unspecified chronic kidney disease; N17.9 Acute kidney failure, unspecified; F17.213 Nicotine dependence, cigarettes, with withdrawal; J44.9 Chronic obstructive pulmonary disease, unspecified; D64.9 Anemia, unspecified; N18.9 Chronic kidney disease, unspecified; I50.9 Heart failure, unspecified; E78.5 Hyperlipidemia, unspecified; G93.89 Other specified disorders of brain; I95.9 Hypotension, unspecified; R63.4 Abnormal weight loss; Z86.73 Personal history of transient ischemic attack (TIA), and cerebral infarction without residual deficits; I69.398 Other sequelae of cerebral infarction

== ENCOUNTER 2018-06-01 08:48 | Outpatient (CLI) | payer MEDICARE, BC ==
[~2018-06-01] VITALS: Ht 180.3 cm; Wt 72.7 kg
[~2018-06-01 08:48] MED LIST changes: +BENICAR40 MG; +FLOMAX0.4 MG; +HYDROCODON-ACE1 EA10; +MUCINEX DM ER1 EAC1 PO; +Nicoderm [PBKC] TRANSDERM; +PRAVACHOL20 MG; +ZANAFLEX6 MG
[2018-06-01 09:14] LABS: BASOPHILS 0.8 % (0-2); EOSINOPHILS 2.3 % (0-7); HEMATOCRIT 35.4 % (42.0-54.0); HEMOGLOBIN 12.1 g/dL (13.5-17.5); IMMATURE GRANULOCYTES 0.2 % (0-5); LYMPHOCYTES 21.5 % (15-50); MCH 32.1 pg (26.0-34.0); MCHC 34.2 g/dL (31.0-37.0); MCV 93.9 fL (80.0-100.0); MEAN PLATELET VOLUME 8.6 fL (7.4-10.4); MONOCYTES 10.3 % (2-11); NEUTROPHILS 64.9 % (40-80); PLATELET COUNT 221 10x3/uL (130-400); RBC 3.77 10x6/uL (4.20-6.10); RDW 13.4 % (11.5-14.5); WBC 4.8 10x3/uL (4.8-10.8)
[2018-06-01 09:27] LABS: ANION GAP 14.4 mmol/L (8-16); CALCIUM 9.5 mg/dL (8.5-10.1); CARBON DIOXIDE 25.9 mmol/L (21.0-32.0); CREATININE - SERUM 1.4 mg/dL (0.6-1.3); POTASSIUM - SERUM 4.3 mmol/L (3.5-5.1)
[2018-06-01 09:57] LABS: APTT 30.2 SECONDS (22.8-39.4); PROTIME 12.7 SECONDS (11.6-15.0)
[2018-06-01 10:10] VITALS: BP 136/106; Ht 180.3 cm; Wt 72.7 kg
--- NOTE | 2018-06-01 14:08 | NUR ---
1310 SEE POST PROCEDURE CHECKLIST FOR VITAL SIGN TRENDS
--- NOTE | 2018-06-01 14:09 | NUR ---
[address] A MESSAGE LEFT FOR DR. MORROW TO CALL ME RE PAIN FOR PT.
--- NOTE | 2018-06-01 14:58 | NUR ---
1445 PORT CXR DONE 1455 NORCO 10MG PO X1 GIVEN FOR NECK PAIN 01/28. DRINKING WATER.
== END 2018-06-01 16:10 | disposition home or self-care (01) ==
LOC: D.CT 08:48 → EDSTATUS 11:00 → D.CT 11:00
PROVIDERS: General Practice
DX: R91.8 Other nonspecific abnormal finding of lung field (principal)

== ENCOUNTER → 2018-06-05 10:03 | Outpatient (CLI) | payer MEDICARE, BC ==
[2018-06-01 10:10] VITALS: BMI 22.3
== END | disposition home or self-care (01) ==
LOC: D.CT 10:00
DX: S12.112A Nondisplaced Type II dens fracture, initial encounter for closed fracture (principal); X58.XXXA Exposure to other specified factors, initial encounter

== ENCOUNTER → 2018-06-24 14:17 | Outpatient (CLI) | payer MEDICARE, BC ==
[2018-06-01 10:10] VITALS: BMI 22.3
== END | disposition home or self-care (01) ==
LOC: D.RT 14:00
PROVIDERS: ATTEND Internal Medicine Pulmonary Disease
DX: R91.1 Solitary pulmonary nodule (principal); J43.9 Emphysema, unspecified; K44.9 Diaphragmatic hernia without obstruction or gangrene

== ENCOUNTER 2018-07-09 06:55 | Inpatient (IN) | payer MEDICARE, BC ==
[~2018-07-09] VITALS: Ht 180.3 cm; Wt 72.6 kg
[2018-07-09] VITALS (8 sets, daily range): BP systolic 131–144; BP diastolic 78–91; BMI 22.3
[2018-07-09 08:33] LABS: BASOPHILS 0.3 % (0-2); EOSINOPHILS 1.8 % (0-7); HEMATOCRIT 34.4 % (42.0-54.0); HEMOGLOBIN 11.1 g/dL (13.5-17.5); LYMPHOCYTES 18.6 % (15-50); MCH 31.3 pg (26.0-34.0); MCHC 32.3 g/dL (31.0-37.0); MCV 96.9 fL (80.0-100.0); MEAN PLATELET VOLUME 8.9 fL (7.4-10.4); MONOCYTES 7.7 % (2-11); NEUTROPHILS 71.6 % (40-80); PLATELET COUNT 187 10x3/uL (130-400); RBC 3.55 10x6/uL (4.20-6.10); RDW 13.5 % (11.5-14.5); WBC 6.1 10x3/uL (4.8-10.8)
[2018-07-09 08:42] LABS: ANION GAP 11.4 mmol/L (8-16); CALCIUM 8.9 mg/dL (8.5-10.1); CARBON DIOXIDE 27.4 mmol/L (21.0-32.0); CREATININE - SERUM 1.5 mg/dL (0.6-1.3); POTASSIUM - SERUM 4.8 mmol/L (3.5-5.1)
[2018-07-09 08:52] LABS: APTT 29.8 SECONDS (22.8-39.4); INR 0.93 (0.85-1.17)
[2018-07-09] MEDS ORDERED: ASPIRIN81 MG PO (08:56)
--- NOTE | 2018-07-09 14:30 | NUR ---
UPON ENTERING ROOM, PT FOUND TO BE TACHYPNEIC AND TACHYCARDIC (115-125) WITH LABORED BREATHING (24-30 BPM) AND WHEEZING NOTED, OXYGEN BETWEEN 86-88% Pt placed on 3LNC AT THIS TIME, AND FRANCES FROM [facility] CALLED.
--- NOTE | 2018-07-09 14:35 | NUR ---
PT PLACED ON 100% NON REBREATHER, O2 INCREASED TO 92%, 24-26BPM, HR 112-115 BPM. PT WORK OF BREATHING DECREASED, AND X RAY AT BEDSIDE AT THIS TIME.
--- NOTE | 2018-07-09 14:45 | NUR ---
PT TAKEN BY FRANCES QUEVEDO BACK TO [facility] AT THIS TIME FOLLOWING CXR, WITH 100 % NON REBREATHER MASK EN ROUTE. SEE VITAL SIGNS SHEET FOR VITAL SIGNS.
--- NOTE | 2018-07-09 16:40 | NUR ---
REC'D PT TO CVICU ROOM 1. AT BS. VSS. L CT TO 20 CM SUCTION. NSR 90 ON CM. CALL LIGHT IN REACH. RESP EASY. NOTIFIED DR BURK AND DR REED OF ROOM NUMBER.
--- NOTE | 2018-07-09 16:56 | NUR ---
PT C/O PAIN TO L CHEST TUBE SITE. RATES 10 ON SCALE OF 1 TO 10. PT CALM, VSS, NORCO GIVEN.
--- NOTE | 2018-07-09 17:08 | NUR ---
DR BURK ORDERED ECHO. ECONOMIC GEOGRAPHER PAGED.
--- NOTE | 2018-07-09 19:10 | NUR ---
Received patient resting in bed with eyes open, assessment completed per flowsheet. Patient AO x4, answers appropriately/follows instructions. Eyes PERRLA @ 3mm with brisk response, sclera is clear/white. S1/S2 noted NSR on telemetry with HR 79, heart sounds clear/rythmic/regular. Breathing is even/unlabored on 4L via NC with O2 sat 99%, RUL/RML clear with LAZARO clear/diminished and diminished lower. L lateral CTx1 to 20 cm suction with dressing CDI, no draiange/air leak observed. All pulses palpable with cap refill < 3 sec, skin warm/dry. Slight weakness noted bilateral lower, patient utilizes wheelchair. C/O aching pain 2/10 L lateral chest, repositioned and will provide PRN medication when available. No further needs at this time, see flowsheet for details. All VSS and will continue to monitor.
--- NOTE | 2018-07-09 21:00 | NUR ---
Patient resting in bed with eyes open and family at bedside, discussed medications/treatment plan with all questions answered to satisfaction. HS meds given without difficulty, c/o L lateral chest discomfort 2/10 post PRN medication. Heart sounds clear, S1/S2 noted NSR on telemetry. L lateral CT x1 to 20cm suction, scant serous drainage with no air leak noted. No further needs at this time, all VSS and will continue to monitor.
--- NOTE | 2018-07-09 22:58 | NUR ---
Reassessment completed per flowsheet, no changes noted from previous assessment. S1/S2 noted NSR on telemetry with HR 89, heart sounds clear/rythmic/regular. Breathing is even/unlabored on 4L via NC with O2 sat 96%, lung sounds clear RUL/RML with clear/diminished LAZARO and diminished bilateral lower. All pulses palpable with cap refill < 3 sec, skin warm/dry. Denies pain or other needs at this time, see flowsheet for details. All VSS and will continue to monitor.
[2018-07-10] VITALS (25 sets, daily range): BP systolic 104–148; BP diastolic 64–98; Ht 180.3 cm; Wt 72.6 kg
--- NOTE | 2018-07-10 01:00 | NUR ---
Patient sleeping in bed with eyes closed, no s/s of distress at this time. S!/S2 noted NSR on telemetry, Heart sounds clear/rythmic/regular. No further needs and will continue to monitor.
--- NOTE | 2018-07-10 02:50 | NUR ---
Reassessment completed per flowsheet, no changes from previous assessment. S1/S2 noted NSR on telemetry with HR 81, heart sounds clear/rythmic/regular. Breathing is even/unlabored on 4L via NC with O2 sat 99%, lung sounds clear bilateral RUL/RML with clear/diminished LAZARO and diminished bilateral lower. L lateral chest CT x1 to 20cm suction with no air leak noted, small serous drainage. All pulses palpable with cap refill < 3 sec, skin warm/dry. Denies pain or other needs at this time, see flowsheet for details. All VSS and will continue to monitor.
--- NOTE | 2018-07-10 05:00 | NUR ---
Patient resting in bed with eyes closed, no s/s of distress at this time. No further needs at this time, all VSS and will continue to monitor.
--- NOTE | 2018-07-10 15:16 | MORECARE ---
CASE MANAGEMENT DISCHARGE SUMMARY PATIENT: TODD HERNANDES UNIT: [id number] ADM DATE: 07/09/18 AGE: 73 : 47 SEX: M ROOM/BED: D.01 AUTHOR: PARSIH SHELLEY PHYSICIAN: REFERRING PHYSICIAN: JL FRANCOIS MD DATE OF SERVICE: 07/10/18 Discharge Plan Patient Name: TODD HERNANDES Facility: [facility]:[place] : 1945 Planned Disposition: Home Anticipated Discharge Date: Discharge Date: Expected LOS: Initial Reviewer: [email or web address] Initial Review Date: 07/09/2018 Generated: 07/10/18 4:15 pm Comments DCP- Discharge Planning Updated by [email or web address]: Jessica Berry on 07/10/18 2:[address] Patient Name: TODD HERNANDES Admission Status: Elective Accout number: [id number] Admission Date: 07-09-2018 : 1945 Admission Diagnosis:PNEUMOTHORAX, UNSPECIFIED Attending: JL FRANCOIS Current LOS: 1 Anticipated DC Date: Planned Disposition: Home Primary Insurance: MEDICARE A & B Discharge Planning Comments: CM met with patient and spouse at bedside. Patient states he lives at home with is spouse (ANETA). He plans on returning to their home upon discharge. He states he feels safe at his home. He states he will have family drive him home upon discharge. He denies any discharge needs at this time. CM will continue to follow and assist as needed with discharge planning / needs. Education Director: Jessica Berry DCPIA - Discharge Planning Initial Assessment Updated by [email or web address]: Jessica Berry on 07/10/18 3:09 pm * Is the patient Alert and Oriented? Yes * How many steps to enter\exit or inside your home? * PCP [facility] * [facility] * Preadmission Environment Home with Family * ADLs Independent * Other Equipment CANE, WALKER, NEBULIZER * List name and contact numbers for known caregivers / representatives who currently or will assist patient after discharge: ANETA HERNANDES - - [phone], * Verbal permission to speak to the caregivers and representatives has been obtained from the patient. N/A * Community resources currently utilized None * Additional services required to return to the preadmission environment? No * Can the patient safely return to the preadmission environment? Yes * Has this patient been hospitalized within the prior 30 days at any hospital? No Patient Name: TODD HERNANDES Page [id number] at 1516 All edits/amendments must be made on the electronic document DICTATION DATE: 07/10/181514 ZOOKEEPER: NATALIYA 07/10/181514 RPT#: [id number] DC DATE: STATUS: ADM IN [facility] [address] [place] [address] END OF REPORT
--- NOTE | 2018-07-10 19:30 | NUR ---
REPORT RECEIVED. PT RECEIVED SITTING UP IN BED AWAKE AND ALERT. ORIENTED X 4. SPEECH CLEAR. RESP EVEN AND UNLABORED. REPORTS PAIN IN INCISION/ CHEST TUBE SITE WHEN DEEP BREATHING BUT OTHERWISE NO DIFF OR SOB. 12FR CHEST TUBE TO LEFT LATERAL CHEST INTACT CONNECTED TO 20 CM SUCTION/ SEROUS DRAINAGE OBSERVED. DRSG CLEAN DRY AND INTACT. LUNG SOUNDS CTA BUL DIMINISHED BLL. MONITORS CONNECTED TO PATIENT WITH ALARMS SET. SR UP X 2. CALL LIGHT IN REACH. AT BEDSIDE.
--- NOTE | 2018-07-10 21:00 | NUR ---
PO MEDS ADMIN WITH NO DIFF. VSS. CALL LIGHT IN REACH. NO DISTRESS OBSERVED
--- NOTE | 2018-07-10 23:00 | NUR ---
REASSESSMENT COMPLETED PER FLOW SHEET WITH NO CHANGES OBSERVED. VSS. CALL LIGHT IN REACH.
[2018-07-11] VITALS (25 sets, daily range): BP systolic 111–150; BP diastolic 55–98
--- NOTE | 2018-07-11 01:00 | NUR ---
RESTING WITH EYES CLOSED, VSS. NO DISTRESS OBSERVED.
--- NOTE | 2018-07-11 05:11 | NUR ---
PATIENT RESTING WITH EYES CLOSED. VSS. RESP 19 AND UNLABORED. NO DISTRESS OBSERVED.
--- NOTE | 2018-07-11 05:13 | NUR ---
UPON ENTERING PT ROOM PT FOUND TACHYPNEIC AND TACHYCARDIC. RESP 28-34 AND LABORED. HR 120-130 02 SAT 86-88% ON O2 3L/MIN PER HIGH FLOW NC. WHEEZING AUDIBLE. SKIN DIAPHORETIC/CLAMMY. PATIENT REPOSITIONED WITH HOB UP TO 90 DEGREES, 02 INCREASED TO 7L/MIN PER HIGH FLOW NC AND PT INSTRUCTED TO BREATH IN THROUGH NOSE. 02 SAT IMPROVED, UP TO 96% RESPIRATORY EFFORT DECREASED, HR LOWERED 90 BPM. O2 TITRATED BACK TO 3L/MIN WITH NO CHANGE IN 02 SAT/ RESP EFFORT. PT VOICED NO FURTHER DIFF BREATHING. CX TUBE TO LEFT LATERAL CHEST INTACT AND CONNECTED TO 20CM SUCTION. VS STABILIZED.
--- NOTE | 2018-07-11 13:40 | NUR ---
CALL PLACED TO X RAY REGARDING MOVEMENT OF L CHEST TUBE. THE FAMILY NURSE IS CALLING IR RADIOLOGIST THAT IS RUFFLING MACHINE OPERATOR TO NOTIFY HIM OF CHANGE.
--- NOTE | 2018-07-11 15:15 | NUR ---
REC'D CALL FROM DR. MORROW. NEW ORDERS REC'D.
--- NOTE | 2018-07-11 16:22 | NUR ---
TO IR FOR NEW CHEST TUBE PLACEMENT
--- NOTE | 2018-07-11 17:20 | NUR ---
RETURN FROM XRAY VIA BED. RECONNECTED TO MONITOR AND VS OBTAINED. SEE FLOWSHEET. L CHEST TUBE TO THORASEAL TO 20 CM SXN. AIR LEAK NOTED. IV TO PUMP @ 30 CC/HR. O2 VIA HFC @ 6LPM. AT BEDSIDE. CALL LIGHT WITHIN REACH. BED ALARM ON.
--- NOTE | 2018-07-11 19:30 | NUR ---
SHIFT ASSESSMENT COMPLETE, PER NURSING FLOWSHEET, PATIENT REPOSITIONED, WILL GIVE PRN PAIN MEDICATION WHEN AVAILABLE IN APPROXIMATELY 30 MINUTES
--- NOTE | 2018-07-11 21:00 | NUR ---
PATIENT REPOSITIONED, AT BEDSIDE, UPDATE GIVEN, QUESTIONS ANSWERED, EDUCATION REGARDING PAIN CONTROL DONE WITH AND PATIENT
--- NOTE | 2018-07-11 23:00 | NUR ---
RE-ASSESSMENT COMPLETE, PER NURSING FLOWSHEET, PATIENT REPOSITIONED, VSS, CONTINUE POC
[2018-07-12] VITALS (23 sets, daily range): BP systolic 90–146; BP diastolic 52–91
--- NOTE | 2018-07-12 01:00 | NUR ---
PATIENT REPOSITIONED, EASILY BACK TO SLEEP, C/L IN REACH
--- NOTE | 2018-07-12 03:00 | NUR ---
RE-ASSESSMENT COMPLETE, PER NURSING FLOWSHEET. PATIENT REPOSITIONED, NO OTHER NEEDS VOICED OR NOTED
--- NOTE | 2018-07-12 05:00 | NUR ---
PATIENT REPOSITIONED, CONTINUED AIR LEAK NOTED TO CT, VSS, WILL CONTINUE TO MONITOR
--- NOTE | 2018-07-12 20:53 | NUR ---
1899 REPORT RECEIVED. ASSESSMENT DONE SEE FLOW SHEET. NO AIR LEAK IN CT. CHEST XRAY OBTAINED TO CONFIRM PLACEMENT. VSS. 2052 MEDS GIVEN PER JUN. WATER PROVIDED. VSS.
--- NOTE | 2018-07-12 22:52 | NUR ---
REASSESSMENT DONE SEE FLOW SHEET. VSS. CT AIR LEAK NOTED WHEN PATIENT IS REPOSITIONED.
[2018-07-13] VITALS (28 sets, daily range): BP systolic 105–147; BP diastolic 61–92
--- NOTE | 2018-07-13 03:00 | NUR ---
0100 WATER PROVIDED PER PT REQUEST. VSS. 0300 REASSESSMENT DONE SEE FLOW SHEET. VSS.
--- NOTE | 2018-07-13 05:01 | NUR ---
PT IN BED RESTING IO COLLECTED DAILY WEIGHT COLLECTED VSS. WILL CONITNUE TO MONITOR.
--- NOTE | 2018-07-13 06:17 | NUR ---
FAMILY CALLED [facility] RECEIVED. QUESTIONS ABOUT HOSPICE ANSWERED. PATIENT ALSO QUESTIONS NEED FOR PROCEDURE AND QUESTIONS OPTIONS FOR HOSPICE.
--- NOTE | 2018-07-13 08:49 | NUR ---
0700 PT RECIEVED ALERT AND ORIENTED 2L NC, VSS DENIES PAIN L LAT CHEST CT TO 20CM SUCTION SEROUS DRAINAGE WITH AIR LEAK PRESENT, PIV TO RH WITH 1/2NS INFUSING, DENIES ALL NEEDS, TOLD IN REPORT PT REQUESTING HOSPICE AND DNR STATUS, SPOKE WITH PT AND CONFIRMED HE WANTS NO COMPRESSIONS, INTUBATION OR RESCUE MEDS, PAGED DR FRANCOIS TO REQUEST DNR ORDER AND NOTIFY OF HOSPICE REQUEST 0830 TOOK AM MEDS WITHOUT DIFFICULTY, AGAIN TALKED WITH PT AND AND BOTH AGREE DNR AND HOSPICE, SALMA SESAY RN IN ROOM AND CLAMPED CT PER IR 0845 PT SOB WITH SPO2 85, RR LABORED, RETURNED TO SUCTION AND NOTIFIED SALMA IN IR, CALLED DR FRANCOIS OFFICE TO NOTIFY OF PTS REQUESTS, NURSE WILL HAVE HIM RETURN CALL.
--- NOTE | 2018-07-13 12:01 | NUR ---
Nutrition Follow uP Reviewed chart and labs Pt has requested hospice consult Diet advanced from last note and pt is on a High Calorie High Protein diet Pt eating 58% of meals past 2 days on average Pt was not eating lunch today- offered mac and cheese and pt agreed Offered other foods and sweets and pt denied Offered ensure and pt denied Pt did not say anything during visit-just gestured. RD following
--- NOTE | 2018-07-13 12:48 | NUR ---
1100 PT ATE 25% LUNCH [address] FRANCOIS OFFICE AGAIN AND CALL WAS RETURNED, DR FRANCOIS NOTIFIED OF PTS WISHES, ORDERED AND STATED HE WILL BE HERE TO SEE PT THIS AFTERNOON
--- NOTE | 2018-07-13 15:55 | NUR ---
PT C/O PAIN WITH CHEST TUBE. PAIN MEDICATION PROVIDED REQUESTED.
--- NOTE | 2018-07-13 17:30 | NUR ---
PT HAS EATEN ABOUT 50% OF DINNER. CURRENTLY AT BEDSIDE AWAITING DR FRANCOIS TO COME SEE PT.
--- NOTE | 2018-07-13 19:30 | NUR ---
PT AOX4, SHALLOW RESPIRATIONS. 2L O2 VIA NC, SPO2 96. LT CT INTACT WITH NO KINKS IN TUBING, NO AIR LEAK PRESENT. S1S2 HEARD, PERIPHERAL PULSES PRESENT. PT REPOSITIONS SELF WITH MINIMAL ASSISTANCE. PARTIAL LINEN CHANGE PROVIDED. PT DENIES NEEDS AT THIS TIME. VSS, CPOC.
--- NOTE | 2018-07-13 20:16 | NUR ---
HS MEDS GIVEN, PRN PAIN MEDICATION PROVIDED UPON REQUEST. FRESH WATER TO BEDSIDE. PT REPOSITIONED FOR COMFORT. VSS, CALL LIGHT WITHIN PT REACH. CPOC.
[2018-07-13 20:29] LABS: BASOPHILS 0.4 % (0-2); EOSINOPHILS 4.3 % (0-7); HEMATOCRIT 31.9 % (42.0-54.0); HEMOGLOBIN 10.4 g/dL (13.5-17.5); IMMATURE GRANULOCYTES 0.2 % (0-5); LYMPHOCYTES 21.6 % (15-50); MCH 31.3 pg (26.0-34.0); MCHC 32.6 g/dL (31.0-37.0); MCV 96.1 fL (80.0-100.0); MEAN PLATELET VOLUME 8.4 fL (7.4-10.4); NEUTROPHILS 60.5 % (40-80); PLATELET COUNT 176 10x3/uL (130-400); RBC 3.32 10x6/uL (4.20-6.10); RDW 13.3 % (11.5-14.5); WBC 5.6 10x3/uL (4.8-10.8)
[2018-07-13 20:42] LABS: ALBUMIN 2.8 g/dL (3.4-5.0); ALKALINE PHOSPHATASE 72 U/L (46-116); ALT (SGPT) 9 U/L (10-68); BILIRUBIN - TOTAL 0.56 mg/dL (0.2-1.3); CALC OSMOLALITY 267 mosm/kg (275-300); CALCIUM 8.4 mg/dL (8.5-10.1); CHLORIDE - SERUM 99 mmol/L (98-107); GLUCOSE 100 mg/dL (74-106); POTASSIUM - SERUM 3.9 mmol/L (3.5-5.1); PROTEIN - SERUM 6.5 g/dL (6.4-8.2); SODIUM 134 mmol/L (136-145); UREA NITROGEN 13 mg/dL (7-18); eGFR NON AFRICAN AMERICAN 78 mL/min (90-120)
--- NOTE | 2018-07-13 23:30 | NUR ---
REASSESSMENT COMPLETE, NO NEW CHANGES AT THIS TIME. PT REPOSITIONED SELF INDEPENDENTLY. VSS, DENIES NEEDS AT THIS TIME. CALL LIGHT WITHIN PT REACH. CPOC.
[2018-07-14] VITALS (35 sets, daily range): BP systolic 97–142; BP diastolic 55–90
--- NOTE | 2018-07-14 01:30 | NUR ---
PT REPOSIITONED SELF INDEPENDENTLY. RESTING QUIETLY AT THIS TIME. VSS. CALL LIGHT WITHIN PT REACH. CPOC.
--- NOTE | 2018-07-14 03:30 | NUR ---
REASSESSMENT COMPLETE, NO NEW CHANGES AT THIS TIME. PT REPOSITIONED WITH PARTIAL LINEN CHANGE PROVIDED. FRESH WATER TO BEDSIDE. VSS, DENIES FURTHER NEEDS AT THIS TIME. CALL LIGHT AND BEDSIDE TABLE WITHIN PT REACH. CPOC.
--- NOTE | 2018-07-14 05:30 | NUR ---
PT REPOSITIONED FOR COMFORT. ASSISTED WITH CALLING VIA ROOM PHONE. VSS, NO COMPLAINTS AT THIS TIME. CALL LIGHT WITHIN PT REACH. CPOC.
--- NOTE | 2018-07-14 09:39 | NUR ---
0700 PT RECIEVED ALERT AND OREINTED O2 2L NC VSS DENIES ALL NEEDS PIV TO R WRIST PATENT, L LAT CHEST DRESSING CDI, 20CM SUCTION, INTERMITTEN AIR LEAK PRESENT, CONTINENT, CALL LIGHT WITHIN REACH 0900 TOOK AM MEDS AND ATE 25% BREAKFAST TOLERATED WELL, HERE FOR VISITATION
--- NOTE | 2018-07-14 15:28 | NUR ---
1100 PT REPOSITIONED IN BED, BED BATH DONE BY PT WITH ASSIST FROM 1200 ATE 50% LUNCH [address] FRANCOIS PT STATED HE BELIEVED THE ONLY WAY TO GO HOME WAS WITH SURGERY, STATED PT SEEMED CONFUSED ABOUT TREATMENT PLAN OPTIONS, DR FRANCOIS ASKED FOR CT SURGEON TO CALL HIM, NOTIFIED DR BURK WHO STATED HE CALLED AND TALKED WITH DR FRANCOIS AND HE WOULD BE CLARIFYING OPTIONS WITH PT AND
--- NOTE | 2018-07-14 17:53 | NUR ---
PT ATE 50% DINNER, DENIES ALL NEEDS
--- NOTE | 2018-07-14 19:30 | NUR ---
PT AOX4, PUPILS EQUAL AND REACTIVE. MOVES EXTREMITIES X4 AGAINST GRAVITY. SHALLOW RESPIRATIONS, LUNG SOUNDS CLEAR/DIMINISHED. SPO2 96, 3L O2 VIA NC. S1S2 HEARD, PERIPHERAL PULSES PRESENT. LEFT CHEST CT INTACT AND DRAINING SEROUS DRAINAGE. NO AIR LEAK SEEN AT THIS TIME. PT REPOSITIONED FOR COMFORT. VSS, FAMILY AT BEDSIDE QUESTIONS ANSWERED. DENIES NEEDS AT THIS TIME. CALL LIGHT AND BEDSIDE TABLE WITHIN PT REACH. CPOC.
--- NOTE | 2018-07-14 20:30 | NUR ---
HS MEDS GIVEN, NICOTINE PATCH APPLIED. PT REPOSITIONED WITH MINIMAL ASSISTANCE FOR COMFORT. VSS, PT DENIES FURTHER NEEDS AT THIS TIME. CALL LIGHT WITHIN PT REACH. CPOC.
--- NOTE | 2018-07-14 23:30 | NUR ---
REASSESSMENT COMPLETE, NO NEW CHANGES AT THIS TIME. PT REPOSITIONED FOR COMFORT. PARTIAL LINEN CHANGE PROVIDED. VSS, DENIES NEEDS AT THIS TIME. CALL LIGHT AND BEDSIDE TABLE WITHIN PT REACH. CPOC.
[2018-07-15] VITALS (27 sets, daily range): BP systolic 100–133; BP diastolic 49–86
--- NOTE | 2018-07-15 03:31 | NUR ---
REASSESSMENT COMPLETE, NO NEW CHANGES AT THIS TIME. PT REPOSITIONED FOR COMFROT, PARTIAL LINEN CHANGE COMPLETE. FRESH WATER PROVIDED. VSS. CALL LIGHT AND BEDSIDE TABLE WITHIN PT REACH. CPOC.
--- NOTE | 2018-07-15 03:45 | NUR ---
ASSISTED PT WITH SITTING ON THE SIDE OF BED TO USE URINAL. TOLERATED WELL. REPOSITIONED BACK IN BED FOR COMFORT. ABHIJEET CARE PROVIDED. VSS, PT DENIES FURTHER NEEDS AT THIS TIME. CALL LIGHT AND BEDSIDE TABLE WITHIN PT REACH. CPOC.
--- NOTE | 2018-07-15 06:00 | NUR ---
PT RESTING QUIETLY WITH NO S/S OF DISTRESS. VSS. REPOSITIONED SELF INDEPENDENTLY. CALL LIGHT WITHIN PT REACH. CPOC.
--- NOTE | 2018-07-15 07:30 | NUR ---
SHIFT REPORT RECEIVED. AA&0X4. RATES PAIN 10/10 ON L-LATERAL CHEST AT CT INSERTION SITE. NORCO 5MG TAB GIVEN FOR PAIN. CT IS TO 20CM SUCTION. NO AIR LEAK NOTED AT THIS TIME. SEROUS DRAINAGE NOTED IN CT CHAMBER. HAS RIGHT HAND PIV WITH 1/2 NS INFUSING AT 30ML/HR. VSS. ORAL TEMP 99.0. SHIFT ASSESSMENT COPLETED. SAFETY MEASURES IN PLACE. WILL CONTINUE TO MONITOR.
--- NOTE | 2018-07-15 08:48 | NUR ---
Nutrition Follow up: Change in plans since last note-no longer wants hospice and will try chemo treatment Reviewed available labs and chart Pt is eating >/=50% of meals on high calorie high protein diet Pt is more talkative today and smiling Offered to assist pt with menu and pt reports that will help him Discussed the role of supplements- pt has tried Boost and does not like it. Encouraged pt to try Ensure to help maintain strength and pt agreed Pt has no nutritional requests at this time RD following
--- NOTE | 2018-07-15 08:55 | NUR ---
ATE ABOUT 50% OF MEAL AT THIS TIME. HAD 360ML OF FLUID. STILL REPORTING PAIN ON L-LATERAL CHEST. NO FURTHER NEEDS AT THIS TIME. WILL CONTINUE TO MONITOR.
--- NOTE | 2018-07-15 09:12 | NUR ---
AM MEDS GIVEN. NICOTINE PATCH PLACED ON LEFT ARM. OLD NICOTINE PATCH REMOVED. PAPI WITH IR CAME TO SEE PT. PLANING ON TAKING CT OUT TOMORROW. DR KIRKPATRICK CAME BY WELL. NO FURTHER NEEDS AT THIS TIME.
--- NOTE | 2018-07-15 10:05 | NUR ---
GAVIN, PT'S SON CALLED. PASSCODE PROVIDED. TOLD THAT PT WAS STABLE AND THAT HE WOULD KEEP CT FOR ANOTHER DAY.
--- NOTE | 2018-07-15 13:39 | NUR ---
PT NOT BEING TRANSFERRED TO FLOOR PER DR. ENRIQUEZ'S ORDERS.
--- NOTE | 2018-07-15 14:15 | NUR ---
REPORTS PAIN 8/10 ON LEFT [address]IDE AT CT INSERTION SITE. NORCO 5MG TAB GIVEN PER ORDERS. NO FURTHER NEEDS AT THIS TIME. WILL CONTINUE TO MONITOR.
--- NOTE | 2018-07-15 15:41 | NUR ---
PT CONTINUES TO RATE PAIN 7/[address] KIRKPATRICK NOTIFIED. INCREASED NORCO TO 10MG TAB Q 4HR.
--- NOTE | 2018-07-15 16:34 | NUR ---
LOVENOX INJECTION GIVEN. VERIFIED WITH DR. BURK BEFORE ADMINISTERING. DOPAMINE WAS TURNED OFF AT 1412. LINDA TURNED DOWN TO 7.8ML/HR (0.4MCG/KG/MIN). PO MEDS GIVEN WITH SIPS OF WATER. PT REFUSED MIRALAX AT THIS TIME. WILL CONTINUE TO MONITOR.
--- NOTE | 2018-07-15 16:54 | NUR ---
DINNER TRAY DELIVERED AND SET UP. NORCO 10 TAB GIVEN FOR PAIN 11/28. SPOUSE AT BEDSIDE. NO FURTHER NEEDS WILL CONTINUE TO MONITOR.
--- NOTE | 2018-07-15 17:59 | NUR ---
ATE ABOUT 90% OF MEAL AND HAD 200ML OF FLUID. FRUSTRATED THAT HE HAS TO STAY IN THE UNIT BECAUSE HIS IS NOT ALLOWED TO STAY THE NIGHT. DENIES FURTHER NEEDS AT THIS TIME.
--- NOTE | 2018-07-15 19:00 | NUR ---
PT AOX4, PUPILS EQUAL AND REACTIVE. PT MOVES EXTREMITIES X4 AGAINST GRAVITY. SHALLOW RESPIRATIONS, LUNG SOUNDS CLEAR/DIMINISHED. SPO2 97, 3L O2 VIA NC. S1S2 HEARD, PERIPHERAL PULSES PRESENT. BOWEL SOUNDS ACTIVE IN ALL QUADRANTS. URINAL AT BEDSIDE. LEFT LATERAL CHEST TUBE TO GRAVITY INTACT WITH CLEAN DRESSING, SEROUS DRAINAGE PRESENT. PT REPOSITIONS SELF INDEPENDENTLY. FRESH WATER PROVIDED. VSS. PT DENIES NEEDS AT THIS TIME. CALL LIGHT AND BEDSIDE TABLE WITHIN PT REACH. CPOC.
--- NOTE | 2018-07-15 20:55 | NUR ---
HS MEDS GIVEN, TOLERATED WELL. PT REPOSITIONED FOR COMFORT. FRESH WATER TO BEDSIDE. VSS, DENIES FURTHER NEEDS AT THIS TIME. CALL LIGHT AND BEDSIDE TABLE WITHIN PT REACH. CPOC.
--- NOTE | 2018-07-15 23:07 | NUR ---
NO CHANGES AT THIS TIME. PT REPOSITIONED FOR COMFORT. VSS, DENIES NEEDS. CALL LIGHT AND BEDSIDE TABLE WITHIN PT REACH. CPOC.
[2018-07-16] VITALS (16 sets, daily range): BP systolic 98–140; BP diastolic 59–95
--- NOTE | 2018-07-16 01:00 | NUR ---
PT REPOSITIONED FOR COMFORT, PARTIAL LINEN CHANGE. VSS, NO C/O PAIN AT THIS TIME. VSS, CPOC.
--- NOTE | 2018-07-16 02:50 | NUR ---
NO CHANGES AT THIS TIME. PT REPOSITIONED FOR COMFORT. ASSISTED PT WITH USING URINAL. ABHIJEET CARE PROVIDED. VSS. NO C/O PAIN AT THIS TIME. CALL LIGHT AND BEDSIDE TABLE WITHIN PT REACH. CPOC.
--- NOTE | 2018-07-16 05:00 | NUR ---
PT REPOSITIONED FOR COMFORT. PARTIAL LINEN CHANGE PROVIDED. CT INTACT, DRSG CLEAN AND DRY. VSS, NO C/O PAIN AT THIS TIME. PT DENIES NEEDS. CALL LIGHT AND BEDSIDE TABLE WITHIN PT REACH. CPOC.
--- NOTE | 2018-07-16 08:50 | NUR ---
AM MEDS GIVEN. CHEST TUBE REMOVED BY PAPI WITH IR. NORCO 10MG PO TAB GIVEN FOR PAIN 8/10 ON NECK AND LEFT SIDE. SITTING UP EATING BREAKFAST. SPOUSE AT BEDSIDE. NO FURTHER NEEDS. WILL CONTINUE TO MONITOR.
--- NOTE | 2018-07-16 12:42 | NUR ---
ATTEMPTED TO REACH DR. FRANCOIS TO SEE IF HE IS OKAY WITH PT BEING DISCHARGED HOME TODAY. MESSAGE LEFT IN HIS OFFICE TO RETURN CALL SOON HE CAN.
--- NOTE | 2018-07-16 13:55 | NUR ---
SPOKE WITH DR. FRANCOIS. PT CAN BE DISCHARGE. HE NEED TO SEE HIM IN HIS OFFICE ON FridayJuly AT 3:30PM.
--- NOTE | 2018-07-16 14:47 | NUR ---
DISCHARGE INSTRUCTIONS REVIEWED WITH PATIENT. COPY OF INSTRUCTIONS GIVEN TO SPOUSE. PIV ON R-WRIST DC'D WITH CATHETER TIP INTACT. PERSONAL BELONGINGS SENT WITH PATIENT. WHEELED OUT TO CAR IN WHEELCHAIR.
--- NOTE | 2018-07-16 16:03 | MORECARE ---
CASE MANAGEMENT DISCHARGE SUMMARY PATIENT: TODD HERNANDES UNIT: [id number] ADM DATE: 07/09/18 AGE: 73 : 47 SEX: M ROOM/BED: D[facility] AUTHOR: PARISH SHELLEY PHYSICIAN: REFERRING PHYSICIAN: JL FRANCOIS MD DATE OF SERVICE: 07/16/18 Discharge Plan Patient Name: TODD HERNANDES Facility: [facility]:[place] : 1945 Planned Disposition: Home Anticipated Discharge Date: Discharge Date: 07/16/2018 Expected LOS: Initial Reviewer: [email or web address] Initial Review Date: 07/09/2018 Generated: 07/16/18 5:02 pm Comments DCP- Discharge Planning Updated by [email or web address]: Jessica Berry on 07/16/18 2:[address] Patient Name: TODD HERNANDES Encounter No: [id number] : 1945 Primary Insurance: MEDICARE A & B Anticipated DC Date: Planned Disposition: Home External Planned Provider: : IMM EXPLAINED AND SERVED 07/16/18 @ 1400 DCP follow-up note: Patient and family in agreement with discharge plan. No changes to plan. Case management will follow and assist as needed. Jessica Berry DCP- Discharge Planning Updated by [id number]: Jessica Berry on 07/10/18 2:[address] Patient Name: TODD HERNANDES Admission Status: Elective Accout number: [id number] Admission Date: 07-09-2018 : 1945 Admission Diagnosis:PNEUMOTHORAX, UNSPECIFIED Attending: JL FRANCOIS Current LOS: 1 Anticipated DC Date: Planned Disposition: Home Primary Insurance: MEDICARE A & B Discharge Planning Comments: CM met with patient and spouse at bedside. Patient states he lives at home with is spouse (ANETA). He plans on returning to their home upon discharge. He states he feels safe at his home. He states he will have family drive him home upon discharge. He denies any discharge needs at this time. CM will continue to follow and assist as needed with discharge planning / needs. Slip Laster: Jessica Berry DCPIA - Discharge Planning Initial Assessment Updated by [email or web address]: Jessica Berry on 07/10/18 3:09 pm * Is the patient Alert and Oriented? Yes * How many steps to enter\exit or inside your home? * PCP [facility] * [facility] * Preadmission Environment Home with Family * ADLs Independent * Other Equipment CANE, WALKER, NEBULIZER * List name and contact numbers for known caregivers / representatives who currently or will assist patient after discharge: ANETA HERNANDES - - [phone], * Verbal permission to speak to the caregivers and representatives has been obtained from the patient. N/A * Community resources currently utilized None * Additional services required to return to the preadmission environment? No * Can the patient safely return to the preadmission environment? Yes * Has this patient been hospitalized within the prior 30 days at any hospital? No Coverage Notice Reviewer: [id number] Karri Berry Notice Issued Date-Time: 07/16/2018 14:00 Notice Type: IM Discharge Notice Notice Delivered To: Patient Relationship to Patient: Spouse Software Development Engineer Name: ANETA HERNANDES Delivery Method: HAND - Hand Delivered Jing Days: Prior Verbal Notification: Recipient Understood Notice: Yes Recipient Signature: Yes Med Rec Note Co-signed by Attending: Coverage Notice Comment: Last DP export: 07/10/18 2:16 p Patient Name: TODD HERNANDES Page [id number] at 1603 All edits/amendments must be made on the electronic document DICTATION DATE: 07/16/18 160 BIOSOLIDS MANAGEMENT TECHNICIAN: NATALIYA 07/16/18 160 RPT#: [id number] DC DATE:07/16/18 STATUS: DIS IN [facility] [address] [place] [address] END OF REPORT
== END 2018-07-16 14:49 | disposition home or self-care (01) | DRG 166 ==
LOC: D.SP 06:55 → D.ICU 06:55 → D.CT 09:00 → D.SP 09:00 → D.ICU 15:30 → D.SP 15:46 → D.ICU 15:46 → D.CVICU 15:46
PROVIDERS: Specialist; ADMIT Internal Medicine Medical Oncology; ATTEND Internal Medicine Medical Oncology
PROC: 0W9B30Z Drainage of Left Pleural Cavity with Drainage Device, Percutaneous Approach (ICD-10-PCS; 2018-07-09)
PROC: 07B73ZX Excision of Thorax Lymphatic, Percutaneous Approach, Diagnostic (ICD-10-PCS; principal; 2018-07-09 09:00)
PROC: 0W2BX0Z Change Drainage Device in Left Pleural Cavity, External Approach (ICD-10-PCS; 2018-07-11)
DX: J95.811 Postprocedural pneumothorax (principal); J95.822 Acute and chronic postprocedural respiratory failure; C34.31 Malignant neoplasm of lower lobe, right bronchus or lung; F17.203 Nicotine dependence unspecified, with withdrawal; I31.9 Disease of pericardium, unspecified; I10 Essential (primary) hypertension; E78.5 Hyperlipidemia, unspecified; J43.9 Emphysema, unspecified; D64.9 Anemia, unspecified; I12.9 Hypertensive chronic kidney disease with stage 1 through stage 4 chronic kidney disease, or unspecified chronic kidney disease; N18.3 Chronic kidney disease, stage 3 (moderate); N40.0 Benign prostatic hyperplasia without lower urinary tract symptoms; R63.4 Abnormal weight loss; Z68.22 Body mass index [BMI] 22.0-22.9, adult

== ENCOUNTER → 2019-01-15 08:06 | Day surgery (SDC) | payer MEDICARE, BC ==
[~2019-01-15] VITALS: Ht 180.3 cm; Wt 65.3 kg
--- NOTE | ~2019-01-15 | OP ---
PATIENT NAME: TODD HERNANDES MEDICAL RECORD: [id number] :[birth year] LOCATION:D.OPS ADMISSION DATE: SURGEON: TORSTEN CASTELLANOS MD DATE OF OPERATION: 01/15/2019 PREOPERATIVE DIAGNOSES: 1. Lung cancer. 2. Hypertension. 3. Tobacco dependence syndrome. 4. Hypercholesterolemia. POSTOPERATIVE DIAGNOSES: 1. Lung cancer. 2. Hypertension. 3. Tobacco dependence syndrome. 4. Hypercholesterolemia. PROCEDURE: 1. Left subclavian vein PowerPort placement. 2. Fluoroscopic interpretation. SURGEON: Torsten Castellanos MD REPORT OF PROCEDURE: The patient's left chest was prepped and draped in sterile fashion. A needle was used to cannulate the left subclavian vein and a guidewire was advanced with ease. Fluoro was used to note that the wire was in good position in the venous system. A skin incision was made on the left superior lateral chest and a subcutaneous pouch was made over the pectoral fascia. The catheter was tunneled between this pouch and the wire exit site. The port was sutured to the pectoral fascia using interrupted 3-0 Prolenes times 2. The catheter was then cut with a beveled tip. The dilator trocar device was placed over the wire and the wire and dilator were removed. The catheter tip was advanced through the trocar with ease and the trocar was removed. The catheter tip was noted to be in good position at the right atrial superior vena caval junction. The catheter aspirated nonpulsatile dark blood and flushed easily with heparinized saline. The subcutaneous tissues were reapproximated with interrupted 3-0 Vicryl and the skin was closed with running subcutaneous 5-0 Monocryl. COMPLICATIONS: None. CONDITION: Stable. ANESTHESIA: General endotracheal. BLOOD LOSS: Minimal. TRANSINT:[id number] Voice Confirmation ID: [id number] DOCUMENT ID: [id number] OPERATIVE REPORT [id number] TODD HERNANDES TORSTEN OTERO MD CC: JL FRANCOIS MD, MARTINEZ REED MD and LATRICIA DURAND [id number] DICTATION DATE: 01/15/19 1136 BODY MAN: 01/15/19 1257 [id number] [place] [address]
[~2019-01-15 08:06] MED LIST changes: +ASPIRIN81 MG PO; +CHLORPHENIRAMINE PO; +HYDROCODON-ACE1 EAC7 PO; +KEFLEX500 MG PO
[2019-01-15 08:31] LABS: BASOPHILS 0.6 % (0-2); EOSINOPHILS 6.2 % (0-7); HEMATOCRIT 31.9 % (42.0-54.0); HEMOGLOBIN 10.5 g/dL (13.5-17.5); LYMPHOCYTES 21.4 % (15-50); MCH 33.9 pg (26.0-34.0); MCHC 32.9 g/dL (31.0-37.0); MCV 102.9 fL (80.0-100.0); MEAN PLATELET VOLUME 8.6 fL (7.4-10.4); MONOCYTES 17.5 % (2-11); NEUTROPHILS 54.3 % (40-80); PLATELET COUNT 202 10x3/uL (130-400); RDW 15.1 % (11.5-14.5); WBC 3.4 10x3/uL (4.8-10.8)
[2019-01-15 08:47] LABS: APTT 28.5 SECONDS (22.8-39.4); INR 0.94 (0.85-1.17); PROTIME 12.1 SECONDS (11.6-15.0)
--- NOTE | 2019-01-15 09:20 | NUR ---
DR BRUNNER NOTIFIED BY PHONE OF PATIENT'S EKG FINDINGS OF ATRIAL FIB RATE 106 AND NO KNOWN HX OF ATRIAL FIB. NO NEW ORDERS
[2019-01-15 09:41] VITALS: BP 135/86; Ht 180.3 cm; Wt 65.3 kg
--- NOTE | 2019-01-15 15:21 | NUR ---
1310-DISCHARGE CRITERIA MET. REMOVED IV WITH CATH INTACT, DISPOSED INTO SHAPRS CONTAINER. COVERED SITE WITH BANDAID.REVIEWED INSTRUCTIONS WITH PT WITH SPOUSE AT SIDE.VERBALIZED UNDERSTANDING WITHOUT QUESTIONS OR CONCERNS. ESCORTED OUT VIA W/C WITH TO DRIVE HOME. STABLE CONDITION.
== END | disposition home or self-care (01) ==
LOC: D.OPS 08:06 → D.PAN 10:15 → D.OPS 10:15
PROVIDERS: Anesthesiology; ATTEND Surgery
DX: C34.90 Malignant neoplasm of unspecified part of unspecified bronchus or lung (principal); F17.200 Nicotine dependence, unspecified, uncomplicated; I10 Essential (primary) hypertension; E78.00 Pure hypercholesterolemia, unspecified

== ENCOUNTER 2019-05-04 17:26 | Inpatient (IN) | payer MEDICARE, BC ==
[~2019-05-04] VITALS: Ht 180.3 cm; Wt 69.1 kg
[~2019-05-04 17:26] MED LIST changes: -FLOMAX0.4 MG; +FLOMAX0.4 MG PO; -HYDROCODON-ACE1 EA10; +HYDROCODON-ACE1 EA10 PO; -PRAVACHOL20 MG; +PRAVACHOL20 MG PO; -ZANAFLEX6 MG
[2019-05-04 18:01] VITALS: BP 79/51
[2019-05-04] MEDS ORDERED: KLONOPIN1 MG PO (18:05)
[2019-05-04] MEDS ORDERED: ASPIRIN325 MG PO (18:05)
[2019-05-04 18:36] LABS: BASOPHILS 0.3 % (0-2); EOSINOPHILS 1.1 % (0-7); HEMATOCRIT 23.7 % (42.0-54.0); IMMATURE GRANULOCYTES 0.6 % (0-5); LYMPHOCYTES 11.7 % (15-50); MCH 31.1 pg (26.0-34.0); MCHC 31.2 g/dL (31.0-37.0); MCV 99.6 fL (80.0-100.0); MEAN PLATELET VOLUME 9.3 fL (7.4-10.4); MONOCYTES 11.1 % (2-11); NEUTROPHILS 75.2 % (40-80); RBC 2.38 10x6/uL (4.20-6.10); RDW 15.9 % (11.5-14.5); WBC 8.9 10x3/uL (4.8-10.8)
[2019-05-04 18:40] LABS: INR 1.04 (0.85-1.17); PROTIME 13.5 SECONDS (11.6-15.0)
[2019-05-04 18:41] LABS: APTT 38.8 SECONDS (22.8-39.4); CALC OSMOLALITY 286 mosm/kg (275-300); CHLORIDE - SERUM 113 mmol/L (98-107); CREATININE - SERUM 1.2 mg/dL (0.6-1.3); GLUCOSE 95 mg/dL (74-106); POTASSIUM - SERUM 4.2 mmol/L (3.5-5.1); SODIUM 143 mmol/L (136-145); UREA NITROGEN 19 mg/dL (7-18); eGFR NON AFRICAN AMERICAN 63 mL/min (90-120)
[2019-05-04 18:46] LABS: HEMOGLOBIN 7.4 g/dL (13.5-17.5); PLATELET COUNT 112 10x3/uL (130-400)
[2019-05-04 19:00] VITALS: BP 132/75
[2019-05-04 19:12] LABS: ALBUMIN 1.9 g/dL (3.4-5.0); ALKALINE PHOSPHATASE 78 U/L (46-116); ALT (SGPT) 13 U/L (10-68); BILIRUBIN - TOTAL 0.21 mg/dL (0.2-1.3); CKMB 0.7 U/L (0.0-3.6); CREATINE KINASE 68 UL (21-232); MAGNESIUM - SERUM 2.2 mg/dL (1.8-2.4); PROTEIN - SERUM 4.9 g/dL (6.4-8.2); THYROID STIMULATING HORMONE 2.37 uIU/mL (0.36-3.74)
[2019-05-04 19:13] LABS: CALCIUM 6.9 mg/dL (8.5-10.1); TROPONIN-I < 0.017 ng/mL (0.000-0.060)
--- NOTE | 2019-05-04 20:50 | NUR ---
BLOOD CONSENT FORMS SIGNED BY PT'S
--- NOTE | 2019-05-04 21:00 | NUR ---
BLOOD TRANSFUSION STARTED, SEE PAPER FORM.
[2019-05-04 22:20] VITALS: BP 133/86
[2019-05-04 22:25] VITALS: BP 133/86; BMI 21.4
[2019-05-05] VITALS (20 sets, daily range): BP systolic 110–134; BP diastolic 60–84; Ht 180.3 cm; Wt 69.1 kg
[2019-05-05 04:29] LABS: BASOPHILS 0.1 % (0-2); EOSINOPHILS 0.6 % (0-7); IMMATURE GRANULOCYTES 0.4 % (0-5); MCH 30.4 pg (26.0-34.0); MCHC 31.8 g/dL (31.0-37.0); MEAN PLATELET VOLUME 9.4 fL (7.4-10.4); MONOCYTES 7.5 % (2-11); NEUTROPHILS 85.4 % (40-80); PLATELET COUNT 128 10x3/uL (130-400); RDW 16.9 % (11.5-14.5)
[2019-05-05 04:43] LABS: HEMATOCRIT 29.6 % (42.0-54.0); HEMOGLOBIN 9.4 g/dL (13.5-17.5); MCV 95.8 fL (80.0-100.0); RBC 3.09 10x6/uL (4.20-6.10); WBC 17.9 10x3/uL (4.8-10.8)
[2019-05-05 05:18] LABS: ALBUMIN 2.1 g/dL (3.4-5.0); ALKALINE PHOSPHATASE 92 U/L (46-116); BILIRUBIN - TOTAL 0.41 mg/dL (0.2-1.3); CALCIUM 7.6 mg/dL (8.5-10.1); CARBON DIOXIDE 23.7 mmol/L (21.0-32.0); CHLORIDE - SERUM 113 mmol/L (98-107); CKMB 0.7 U/L (0.0-3.6); CREATINE KINASE 72 UL (21-232); CREATININE - SERUM 1.1 mg/dL (0.6-1.3); GLUCOSE 84 mg/dL (74-106); POTASSIUM - SERUM 4.8 mmol/L (3.5-5.1); PROTEIN - SERUM 5.4 g/dL (6.4-8.2); SODIUM 143 mmol/L (136-145); eGFR NON AFRICAN AMERICAN 70 mL/min (90-120)
[2019-05-05 05:23] LABS: ALT (SGPT) 17 U/L (10-68); CALC OSMOLALITY 284 mosm/kg (275-300); TROPONIN-I < 0.017 ng/mL (0.000-0.060); UREA NITROGEN 14 mg/dL (7-18)
[2019-05-05 07:37] LABS: MAGNESIUM - SERUM 2.2 mg/dL (1.8-2.4); PHOSPHOROUS 3.6 mg/dL (2.5-4.9)
--- NOTE | 2019-05-05 08:51 | NUR ---
spoke with family. passcode [email or web address]
[2019-05-05 10:13] LABS: % SATURATION 32 % (15-55); IRON 62 ug/dl (35-150); TOTAL IRON BIND CAPACITY 192 ug/dl (260-445); UNSAT IRON BIND CAPACITY 130 ug/dl (150-375)
[2019-05-05 10:41] LABS: FERRITIN 212 ng/mL (3-244)
--- NOTE | 2019-05-05 13:00 | NUR ---
physical therapy at bedside. patient ambulated fine with no assisstance. able to stand without difficulties. will continue to monitor
[2019-05-05 13:01] LABS: APPEARANCE CLEAR (CLEAR); BILIRUBIN NEGATIVE (NEGATIVE); COLOR YELLOW (YELLOW); GLUCOSE NEGATIVE (NEGATIVE); KETONE NEGATIVE (NEGATIVE); NITRITE NEGATIVE (NEGATIVE); PROTEIN NEGATIVE (NEGATIVE); UROBILINOGEN NORMAL (NORMAL)
[2019-05-05 14:53] LABS: HEMATOCRIT 33.2 % (42.0-54.0); HEMOGLOBIN 10.4 g/dL (13.5-17.5)
--- NOTE | 2019-05-05 15:06 | NUR ---
DR KIRKPATRICK AT BEDSIDE. WILL DC IN AM IF ALL STUDIES COME BACK WNL
--- NOTE | 2019-05-05 16:10 | NUR ---
READ REPORT OF D-DIMER TO DR KIRKPATRICK STATED TO GET CTA OF CHEST PE PROTOCOL
--- NOTE | 2019-05-05 16:21 | NUR ---
PATIENT GONE TO CT
--- NOTE | 2019-05-05 17:00 | NUR ---
WHEN PATIENT ARRIVED BACK TO UNIT. CT STAFF INFORMED PATIENT REFUSED TO MOVE. STATED HE WAS TOO WEAK AND COULD NOT MOVE AND HAD TO BE MOVED. INFORMED STAFF THAT HE WAS AMBULATORY AND AMBULTED WITH PHYSICAL THERAPY WITH NO ASSIST AROUND ROOM
--- NOTE | 2019-05-05 18:11 | MORECARE ---
CASE MANAGEMENT DISCHARGE SUMMARY PATIENT: TODD HERNANDES UNIT: [id number] ADM DATE: 05/04/19 AGE: 74 : 47 SEX: M ROOM/BED: D.2312 AUTHOR: KARSTENDOC PHYSICIAN: REFERRING PHYSICIAN: JEANETTE KIRKPATRICK MD DATE OF SERVICE: 05/05/19 Discharge Plan Patient Name: TODD HERNANDES Facility: [facility]:[place] : 1945 Planned Disposition: Home Anticipated Discharge Date: Discharge Date: Expected LOS: Initial Reviewer: [email or web address] Initial Review Date: 05/05/2019 Generated: 05/05/19 7:11 pm Comments DCP- Discharge Planning Updated by [email or web address]: Jessica Berry on 05/05/19 5:[address] Patient Name: TODD HERNANDES Admission Status: ER Accout number: [id number] Admission Date: 05-04-2019 : 1945 Admission Diagnosis: Attending: JEANETTE KIRKPATRICK Current LOS: 1 Anticipated DC Date: Planned Disposition: Home Primary Insurance: MEDICARE A & B Discharge Planning Comments: CM met with patient at bedside after explaining CM role and obtaining verbal consent. Patient lives at home with his where he is independent with his care and plans to return there upon discharge. Patient feels this would be a safe discharge. CM discussed availability / needs of home health and medical equipment. Patient denies any discharge needs at this time. Patient states he will have his family drive him home upon discharge. CM will continue to follow and assist as needed with discharge planning / needs. Valet Parking Attendant: Jessica Berry DCPIA - Discharge Planning Initial Assessment Updated by [email or web address]: Jessica Berry on 05/05/19 6:10 pm * Is the patient Alert and Oriented? Yes * How many steps to enter\exit or inside your home? * PCP TITO * Pharmacy [facility] * Preadmission Environment Home with Family * ADLs Independent * Other Equipment WALKER, CANE * List name and contact numbers for known caregivers / representatives who currently or will assist patient after discharge: ANETA HERNANDES - SPOUSE - [phone], * Verbal permission to speak to the caregivers and representatives has been obtained from the patient. Yes * Community resources currently utilized None * Additional services required to return to the preadmission environment? No * Can the patient safely return to the preadmission environment? Yes * Has this patient been hospitalized within the prior 30 days at any hospital? No Patient Name: TODD HERNANDES Page 20711 at 1811 All edits/amendments must be made on the electronic document DICTATION DATE: 05/05/191810 PANEL MONITOR: NATALIYA 05/05/191810 RPT#: [id number] DC DATE: STATUS: ADM IN [facility] [address] [place] [address] END OF REPORT
--- NOTE | 2019-05-05 18:22 | NUR ---
patiet ambulated to and from chair with no assist
--- NOTE | 2019-05-05 19:47 | NUR ---
PAGED RUDY FOR DR. FRANCOIS FOR CONSULT, AWAITING CALL BACK.
[2019-05-06] VITALS (9 sets, daily range): BP systolic 127–165; BP diastolic 79–94
[2019-05-06 04:31] LABS: BASOPHILS 0.2 % (0-2); EOSINOPHILS 0.4 % (0-7); HEMOGLOBIN 9.9 g/dL (13.5-17.5); IMMATURE GRANULOCYTES 0.3 % (0-5); LYMPHOCYTES 8.1 % (15-50); MCH 30.4 pg (26.0-34.0); MCHC 31.9 g/dL (31.0-37.0); MCV 95.1 fL (80.0-100.0); MEAN PLATELET VOLUME 9.4 fL (7.4-10.4); MONOCYTES 8.7 % (2-11); NEUTROPHILS 82.3 % (40-80); PLATELET COUNT 145 10x3/uL (130-400); RBC 3.26 10x6/uL (4.20-6.10); RDW 16.9 % (11.5-14.5)
[2019-05-06 04:34] LABS: WBC 12.4 10x3/uL (4.8-10.8)
[2019-05-06 04:40] LABS: ALBUMIN 2.2 g/dL (3.4-5.0); ANION GAP 8.9 mmol/L (8-16); BILIRUBIN - TOTAL 0.46 mg/dL (0.2-1.3); CALCIUM 7.8 mg/dL (8.5-10.1); CARBON DIOXIDE 26.3 mmol/L (21.0-32.0); CREATININE - SERUM 1.1 mg/dL (0.6-1.3); POTASSIUM - SERUM 4.2 mmol/L (3.5-5.1); PROTEIN - SERUM 5.7 g/dL (6.4-8.2)
--- NOTE | 2019-05-06 06:22 | NUR ---
REPORT RECEIVED FROM EMY BLAIR. PATIENT TO ROOM 2137 VIA W/C, TRANSFERED TO BED WITH MINIMAL ASSIST. VS T98.2 BP166/92 HR96 RR20 O289% PLACED 2L O2 VIA NC PATIENT O2 SAT NOW 97% INFUSAPORT LOCATED TO LT CHEST, SL, DRSG C/D/I. PIV TO LT AC, SL AND TO RT AC INFUSING NS @ KVO. PATIENT DENIES NEEDS AT THIS TIME. CL IN REACH, BED LOCKED AND LOWERED. WILL CTM.
--- NOTE | 2019-05-06 07:37 | NUR ---
REPORT RECEIVED. WILL CONTINUE WITH POC. PT CURRENTLY LYING SEMI FOWLERS. CALL LIGHT W/I REACH. PT IS AAO AND UP WITH ASSIST. RR EVEN AND UNLABORED ON 2L 02. INFUSAPORT SALINE LOCKED. PT DENIES ANY NEEDS AT THIS TIME. NO S/S OF DISTRESS NOTED. WILL CTM.
--- NOTE | 2019-05-06 13:25 | EC ---
PATIENT:TODD HERNANDES DATE OF SERVICE: 05/04/19 SEX: M MEDICAL RECORD: [id number] DATE OF : [birth year] LOCATION:D.M2 D.213 AGE OF PATIENT: 74 ADMISSION DATE: 05/04/19 REFERRING PHYSICIAN: INTERPRETING PHYSICIAN: BRIT QUIÑONES MD ECHOCARDIOGRAM REPORT ECHO CHARGES 4 ECHO COMPLETE Date: 05/05/19 CLINICAL DIAGNOSIS: TIA ECHOCARDIOGRAPHIC MEASUREMENTS (adult normal given) AC root (d.<3.7cm) 3.4 cm LV Septum d (<1.2 cm> 1.1 cm Valve Excursion 1.6 cm LV Septum (systole) 1.7 cm Left Atria (s.<4.0cm> 3.3 cm LVPW d(<1.2cm) 1.4 cm RV (d.<2.3cm) 2.7 cm LVPW (sytole) 1.6 cm LV diastole(<5.6CM) 5.2 cm MV E-F(>70mm/sec) cm LV systole 3.3 cm LVOT Diameter 1.8 cm MV exc.(>10mm) cm Est.ejection fraction (50-75%) % DOPPLER: LVIT cm/sec A 65.0 cm/sec E 109 cm/sec LA cm/sec RVSP 33.0 mmHg LVOT 145 cm/sec AOP1/2T m/s Asc. Ao 151 cm/sec RVOT 66.0 cm/sec RA cm/sec PA 82.0 cm/sec AV Gradient Peak 9.1 mmHg AV Mean 3.9 mmHg AV Area 2.6 cm MV Gradient Peak 4.9 mmHg MV Mean 1.8 mmHg MV Area cm COMMENTS: Relay Mechanic: Oly BUNNOE Material Reprocessing Associate: 3 Dr. Rasmussen TAPE# PACS Pericardial Effusion N DATE OF SERVICE: Adequate 2D Echo, Color Flow, Spectral Doppler, and M-mode. Borderline LVH. LV internal dimensions are normal. Wall motion is normal. EF is greater than or equal to 55%. Aortic valve is tricuspid. No evidence of stenosis by Doppler interrogation. Left atrium is normal. Mitral valve shows no prolapse. Trace MR. Right-sided chambers are grossly normal. Trace TR. TRANSINT:[id number] Voice Confirmation ID: [id number] DOCUMENT ID: [id number] ECHOCARDIOGRAM REPORT [id number] GERTATODD BRIT EID MD at 1325 CC: [id number] DICTATION DATE: 05/05/19 1602 MARINE RADIO INSTALLER AND SERVICER: 05/05/192023 ADM IN [place] [id number] [place] [id number]
[2019-05-06] MEDS ORDERED: LEVAQUIN750 MG PO (15:55)
--- NOTE | 2019-05-06 16:09 | NUR ---
I AGREE WITH THE ASSESSMENT COMPLETED BY THE PE MANAGER ON STAFF
--- NOTE | 2019-05-06 18:34 | NUR ---
PT DISCHARGED HOME VIA WHEELCHAIR WITH FAMILY. BOTH PIV'S REMOVED WITH CATHETER TIP FULLY INTACT. TANG NEEDLE REMOVED AND PORT DEACCESSED. PT SIGNED PROPER DISCHARGE INSTRUCTIONS AND REMOVED ALL VALUABLES FROM THE ROOM.
--- NOTE | 2019-05-07 11:27 | MORECARE ---
CASE MANAGEMENT DISCHARGE SUMMARY PATIENT: TODD HERNANDES UNIT: [id number] ADM DATE: 05/04/19 AGE: 74 : 47 SEX: M ROOM/BED: D.3837 AUTHOR: [place] PHYSICIAN: REFERRING PHYSICIAN: JEANETTE KIRKPATRICK MD DATE OF SERVICE: 05/07/19 Discharge Plan Patient Name: TODD HERNANDES Facility: [facility]:[place] : 1945 Planned Disposition: Home Anticipated Discharge Date: Discharge Date: 05/06/2019 Expected LOS: Initial Reviewer: [email or web address] Initial Review Date: 05/05/2019 Generated: 05/07/19 12:27 pm Comments DCP- Discharge Planning Updated by [email or web address]: Jessica Berry on 05/05/19 5:[address] Patient Name: TDOD HERNANDES Admission Status: ER Accout number: [id number] Admission Date: 05-04-2019 : 1945 Admission Diagnosis: Attending: JEANETTE KIRKPATRICK Current LOS: 1 Anticipated DC Date: Planned Disposition: Home Primary Insurance: MEDICARE A & B Discharge Planning Comments: CM met with patient at bedside after explaining CM role and obtaining verbal consent. Patient lives at home with his where he is independent with his care and plans to return there upon discharge. Patient feels this would be a safe discharge. CM discussed availability / needs of home health and medical equipment. Patient denies any discharge needs at this time. Patient states he will have his family drive him home upon discharge. CM will continue to follow and assist as needed with discharge planning / needs. Communications Equipment Installer: Jessica Berry DCPIA - Discharge Planning Initial Assessment Updated by [email or web address]: Jessica Berry on 05/05/19 6:10 pm * Is the patient Alert and Oriented? Yes * How many steps to enter\exit or inside your home? * PCP TITO * Pharmacy [email or web address] * Preadmission Environment Home with Family * ADLs Independent * Other Equipment WALKER, CANE * List name and contact numbers for known caregivers / representatives who currently or will assist patient after discharge: ANETA HERNANDES - SPOUSE - [phone], * Verbal permission to speak to the caregivers and representatives has been obtained from the patient. Yes * Community resources currently utilized None * Additional services required to return to the preadmission environment? No * Can the patient safely return to the preadmission environment? Yes * Has this patient been hospitalized within the prior 30 days at any hospital? No Last DP export: 05/05/19 5:11 p Patient Name: TODD HERNANDES Page 89058 at 1127 All edits/amendments must be made on the electronic document DICTATION DATE: 05/07/191126 CHIPPER OPERATOR: DM 05/07/191126 RPT#: [id number] DC DATE:05/06/19 STATUS: DIS IN [facility] [address] [place] [address] END OF REPORT
== END 2019-05-06 18:35 | disposition home or self-care (01) | DRG 91 ==
LOC: D.ER 17:26 → D.ICU 20:40 → D.M2 20:40
PROVIDERS: Family Medicine; ADMIT Internal Medicine Nephrology; ATTEND Internal Medicine Nephrology
DX: I67.1 Cerebral aneurysm, nonruptured (principal); E43 Unspecified severe protein-calorie malnutrition; G93.49 Other encephalopathy; G45.9 Transient cerebral ischemic attack, unspecified; N17.9 Acute kidney failure, unspecified; C34.90 Malignant neoplasm of unspecified part of unspecified bronchus or lung; F17.213 Nicotine dependence, cigarettes, with withdrawal; I95.9 Hypotension, unspecified; D64.9 Anemia, unspecified; D69.6 Thrombocytopenia, unspecified; Z68.21 Body mass index [BMI] 21.0-21.9, adult; J44.9 Chronic obstructive pulmonary disease, unspecified; I10 Essential (primary) hypertension; Z86.73 Personal history of transient ischemic attack (TIA), and cerebral infarction without residual deficits; N40.1 Benign prostatic hyperplasia with lower urinary tract symptoms; R33.8 Other retention of urine; F41.9 Anxiety disorder, unspecified; G89.29 Other chronic pain